=== PATIENT | male | born 1995 | race Caucasian/White ===

== ENCOUNTER 2022-01-01 14:00 | Emergency (ER) | payer OTHER, SELFPAY ==
--- NOTE | 2022-01-01 14:16 | ECG_ITS ---
Test Reason : overdose Blood Pressure : / mmHG Vent. Rate : 100 BPM Atrial Rate : 100 BPM P-R Int : 148 ms QRS Dur : 086 ms QT Int : 350 ms P-R-T Axes : 079 058 059 degrees QTc Int : 451 ms Normal sinus rhythm Normal ECG No previous ECGs available Referred By: Samm Treadwell Electronically Signed By:FELIPE WALLER
[2022-01-01 14:17] VITALS: BP 137/80; BP 140/90; PULSE 125; PULSE 98; RESP 16; O2SAT 98; O2SAT 99; BMI 22.6
[2022-01-01] MEDS: 0.9 % Sodium Chloride 1,000 ML 999 ML IV ×2 (14:32→20:10)
[2022-01-01 14:36] VITALS: PULSE 96; RESP 11; O2SAT 98
[2022-01-01 14:50] LABS: MANUAL DIFF FLAG NO
[2022-01-01 14:53] LABS: Basophils Absolute Auto 0.1 X10*3/uL (0.0-0.2); Basophils Percent Auto 0.6 % (0-2); Eosinophils Percent Auto 0.1 % (0-4); Hematocrit 41.3 % (42.0-52.0); Hemoglobin 13.4 g/dl (14.0-18.0); Imm Gran Abs Auto 0.06 X10*3/uL (0.00-0.03); Imm Gran Pct Auto 0.4 % (0.0-0.4); Lymphocytes Absolute Auto 2.3 X10*3/uL (1.2-4.9); Lymphocytes Percent Auto 14.5 % (20-40); Mean Corpuscular HGB Conc 32.4 g/dl (31.0-36.0); Mean Corpuscular Hemoglobin 26.6 pg (27.0-33.0); Mean Corpuscular Volume 81.9 fL (80.0-98.0); Mean Platelet Volume 10.2 fL (9.4-12.4); Monocytes Absolute Auto 0.6 X10*3/uL (0.1-1.2); Monocytes Percent Auto 3.8 % (2-11); Neutrophils Absolute Auto 12.5 x10*3/uL (2.0-8.3); Neutrophils Percent Auto 80.6 % (45-73); Platelet Count 370 X10*3/uL (160-400); Red Blood Count 5.04 X10*6/uL (4.60-5.80); Red Cell Distribution Width 13.3 % (11.0-16.0); White Blood Count 15.6 X10*3/uL (4.8-10.8)
--- NOTE | 2022-01-01 15:05 | PC.NURSE ---
Dawson from poison control contacted, suggestions at this time: supportive care with fluids, glucagon, atropine - Labs to monitor: CMP, LFT's, Tylenol, asp, and ETOH levels, urine tox screen and cont cardiac monitoring. Monitor 6-8 hours for hypoglycemia, hypotension, and bradycardia. Zofran may be given for n/v. At this time poison control suggests supportive care. MLP notified.
[2022-01-01 15:09] LABS: Acetaminophen LAB < 1 mcg/mL (<30); Alanine Aminotransferase 25 U/L (0-40); Albumin Level 4.8 g/dL (3.5-5.0); Alkaline Phosphatase 77 U/L (39-117); Anion Gap 17 (12-20); Aspartate Amino Transferase 20 U/L (5-37); Bilirubin Direct 0.3 mg/dL (0.0-0.5); Bilirubin Total 0.6 mg/dL (0.0-1.0); Blood Urea Nitrogen 6 mg/dL (9-16); Calcium 9.9 mg/dL (8.4-10.2); Carbon Dioxide 24 mmol/L (22-29); Chloride 106 mmol/L (96-108); Creatinine Clr Calc Pharmacy 113.9; Estimated Glomerular Filt Rate > 60; Ethanol < 10 mg/dL; Glucose Random 153 mg/dL (60-115); Magnesium 2.1 mg/dL (1.6-2.6); Potassium 3.5 mmol/L (3.3-5.1); Salicylate < 5.0 mg/dL (15-30); Sodium 143 mmol/L (135-145); Total Protein 7.8 g/dL (6.5-8.0)
[2022-01-01 15:22] LABS: Lipase < 4 U/L (8-78)
--- NOTE | 2022-01-01 15:28 | MHC.CARE ---
CARE team aware of pt who arrived to ED s/p intentional propanolol overdose. Will continue to follow, assessment is pending medical clearance.
[2022-01-01] MEDS: Metoclopramide HCl 10 MG/2 ML VIAL IVPUSH (15:43)
[2022-01-01 15:47] LABS: Appearance Urine Clear; Color Urine Yellow; Glucose Urine UA 500 mg/dL (Negative); Leukocyte Esterase Urine Negative (Negative); Nitrite Urine Negative (Negative); PH 8.5 (5.0-9.0); Specific Gravity - Urine 1.015 (1.005-1.025); UMIC TRIGGER UACC YES; Urine Blood Trace (Negative); Urine Ketones 15 mg/dL (Negative); Urine Protein Negative (Neg-Trace)
[2022-01-01 15:52] LABS: Amphetamine Screen Urine Not Detected (Not Detect); Barbiturates, Urine Not Detected (Not Detect); Benzodiazepines Screen Urine Not Detected (Not Detect); Cannabinoid Screen Urine POSITIVE (Not Detect); Cocaine Screen Urine Not Detected (Not Detect); Fentanyl, urine Not Detected (Not Detect); Opiate Screen Urine Not Detected (Not Detect); Phencyclidine Screen Urine Not Detected (Not Detect)
[2022-01-01 15:55] LABS: Bacteria Urine None Seen (None Seen); Hyaline Casts Urine 0-2 /LPF (0-2); Squamous Epithelial Cell Urine 0-2 /HPF (0-2); WBC Urine 0-5 /HPF (0-5)
[2022-01-01 17:17] LABS: Glucose, Whole Blood 88 mg/dL (60-115)
[2022-01-01 17:38] VITALS: BP 111/63; PULSE 80; RESP 16; TEMP 36.9; O2SAT 98
--- NOTE | 2022-01-01 18:08 | ED_ITS ---
HPI - Overdose General Chief Complaint: Overdose Stated Complaint: CRISIS,OVERDOSE Time Seen by Provider: 01/01/22 14:15 Source: patient Mode of arrival: ambulatory Limitations: no limitations History of Present Illness HPI Narrative: 27-year-old male presents to ED for taking a 1000 mg of propranolol. Patient states he was anxious and stole meds from his friend. Patient states he was not suicidal. Patient admits to history of depression anxiety in the past. Today's patient birthday. Patient states he took medications 1-2 before coming to the ER. Patient only complaining nausea and monitor. Related Data Allergies Allergy/AdvReac Type Severity Reaction Status Date / Time No Known Allergies Allergy Unverified 12/23/19 17:26 [No Known Allergies*] Review of Systems Review of Systems: overdose. nausea and vomitting Yes all other systems are reviewed and are negative [facility] Social History Social History Patient Tobacco Use Status: Never used Tobacco Substance Use Type: Marijuana Advance Directives: No Advance Directives Information Provided: Yes Physical Exam Vital Signs: Vital Signs: Last Vital Signs Temp 98.4 F 01/01/22 17:38 Pulse 80 01/01/22 17:38 Resp 16 01/01/22 17:38 BP 111/63 01/01/22 17:38 Pulse Ox 98 01/01/22 17:38 O2 Del Method 01/01/22 17:38 BMI result Body Mass Index 22.6 Const: General: cooperative, healthy appearing, comfortable, no acute distress, well developed, alert, awake and Physically active Orientation/con sciousness: patient oriented x3 HEENT: Head: Yes normal to inspection, Yes No palpable skull fracture present, Yes normocephalic, Yes atraumatic and No abrasion Eyes: General: appearance normal, both eyes and all related structures Neck: Neck: Yes normal visual inspection, Yes full ROM, Yes no lymphadenopathy, Yes no meningeal signs, Yes trachea midline, Yes supple, No anterior neck swelling and No tender Chest: Chest palpation & inspection: normal inspection of the chest and normal palpation of entire chest wall Resp: Effort & Inspection: normal respiratory effort and able to speak in complete sentences Auscultation: clear to auscultation bilaterally Cardio: Jugular venous distension: no JVD Heart sounds: S1 normal heart sound present and S2 normal heart sound present GI: Inspection: Yes normal to inspection and No abdominal wall ecchymosis Palpation (GI): Soft to palpation, not firm, nontender, no guarding and not rigid : General: No CVA tenderness and Yes no CVA tenderness Back/Spine/Pelvis: Back: no CVA tenderness, No CVA tenderness and No back tenderness Skin: General skin exam: no rashes or lesions noted and elasticity normal Neuro: General: patient oriented x3, gait normal, tone normal, no meningeal signs and CN's II-XI intact bilaterally Cranial nerves: Yes CN's II-XII intact bilaterally Extrem: General: Yes normal to inspection and Yes full ROM Psych: Appearance: grossly normal, well kempt and not disheveled Course Course Course Narrative: Will do labs and EKG. Gone 3 mg IV ordered. Reevaluation(s) Reevaluation #1: Nurse called poison Control recommended supportive care with fluids and also atropine and glucagon if needed. Recommended looking for hyperglycemia bradycardia and hypertension. Patient receiving fluids. I also recommend glucose checked every hour. Repeat labs are ordered. Poison Control called back around 19:00. Crisis evaluation Pending. Sign out to DIAMOND Rapp Time: 18:11 MDM - Overdose MDM Narrative Medical decision making narrative: Overdoese Lab Data Result diagrams: 01/01/22 14:45 01/01/22 14:45 Labs: Lab Results 01/01/22 01/01/22 01/01/22 Range/Units 14:45 14:45 15:23 WBC 15.6 H (4.8-10.8) X10*3/uL RBC 5.04 (4.60-5.80) X10*6/uL Hgb 13.4 L (14.0-18.0) g/dl Hct 41.3 L (42.0-52.0) % MCV 81.9 (80.0-98.0) fL MCH 26.6 L (27.0-33.0) pg MCHC 32.4 (31.0-36.0) g/dl RDW 13.3 (11.0-16.0) % Plt Count 370 (160-400) X10*3/uL MPV 10.2 (9.4-12.4) fL Immature Gran % (Auto) 0.4 (0.0-0.4) % Neut % (Auto) 80.6 H (45-73) % Lymph % (Auto) 14.5 L (20-40) % [place] % (Auto) 3.8 (2-11) % Eos % (Auto) 0.1 (0-4) % Baso % (Auto) 0.6 (0-2) % Lymph # (Auto) 2.3 (1.2-4.9) X10*3/uL [place] # (Auto) 0.6 (0.1-1.2) X10*3/uL Eos # (Auto) 0.0 (0.0-0.4) X10*3/uL Baso # (Auto) 0.1 (0.0-0.2) X10*3/uL Abs Immat Gran (auto) 0.06 H (0.00-0.03) X10*3/uL Absolute Neuts (auto) 12.5 H (2.0-8.3) x10*3/uL Absolute Nucleated RBC 0.000 (0.0-0.012) X10*3/uL Nucleated RBC % (auto) 0.0 (0.0-0.2) /100WBC Sodium 143 (135-145) mmol/L Potassium 3.5 (3.3-5.1) mmol/L Chloride 106 (96-108) mmol/L Carbon Dioxide 24 (22-29) mmol/L Anion Gap 17 (12-20) BUN 6 L (9-16) mg/dL Creatinine 0.89 (0.5-1.4) mg/dL Estim Creat Clear Calc 113.9 Estimated GFR > 60 POC Glucose (60-115) mg/dL Random Glucose 153 H (60-115) mg/dL Calcium 9.9 (8.4-10.2) mg/dL Magnesium 2.1 (1.6-2.6) mg/dL Total Bilirubin 0.6 (0.0-1.0) mg/dL Direct Bilirubin 0.3 (0.0-0.5) mg/dL AST 20 (5-37) U/L ALT 25 (0-40) U/L Alkaline Phosphatase 77 (39-117) U/L Total Protein 7.8 (6.5-8.0) g/dL Albumin 4.8 (3.5-5.0) g/dL Lipase < 4 L (8-78) U/L Urine Color Yellow Urine Appearance Clear Urine pH 8.5 (5.0-9.0) Ur Specific [place] 1.015 (1.005-1.025) Urine Protein Negative (Neg-Trace) mg/dL Urine Glucose (UA) 500 H (Negative) mg/dL Urine Ketones 15 (Negative) mg/dL Urine Blood Trace H (Negative) Urine Nitrite Negative (Negative) Ur Leukocyte Esterase Negative (Negative) Urine RBC 3-5 H (0-2) /HPF Urine WBC 0-5 (0-5) /HPF Ur Squamous Epith Cells 0-2 (0-2) /HPF Urine Bacteria None Seen (None Seen) Hyaline Casts 0-2 (0-2) /LPF Salicylates < 5.0 L (15-30) mg/dL Urine Opiates Screen (Not Detect) Urine Fentanyl Screen (Not Detect) Acetaminophen < 1 (<30) mcg/mL Ur Barbiturates Screen (Not Detect) Ur Phencyclidine Scrn (Not Detect) Ur Amphetamines Screen (Not Detect) U Benzodiazepines Scrn (Not Detect) Urine Cocaine Screen (Not Detect) U Marijuana (THC) Screen (Not Detect) Ethyl Alcohol < 10 mg/dL 01/01/22 01/01/22 Range/Units 15:23 17:08 WBC (4.8-10.8) X10*3/uL RBC (4.60-5.80) X10*6/uL Hgb (14.0-18.0) g/dl Hct (42.0-52.0) % MCV (80.0-98.0) fL MCH (27.0-33.0) pg MCHC (31.0-36.0) g/dl RDW (11.0-16.0) % Plt Count (160-400) X10*3/uL MPV (9.4-12.4) fL Immature Gran % (Auto) (0.0-0.4) % Neut % (Auto) (45-73) % Lymph % (Auto) (20-40) % [place] % (Auto) (2-11) % Eos % (Auto) (0-4) % Baso % (Auto) (0-2) % Lymph # (Auto) (1.2-4.9) X10*3/uL [place] # (Auto) (0.1-1.2) X10*3/uL Eos # (Auto) (0.0-0.4) X10*3/uL Baso # (Auto) (0.0-0.2) X10*3/uL Abs Immat Gran (auto) (0.00-0.03) X10*3/uL Absolute Neuts (auto) (2.0-8.3) x10*3/uL Absolute Nucleated RBC (0.0-0.012) X10*3/uL Nucleated RBC % (auto) (0.0-0.2) /100WBC Sodium (135-145) mmol/L Potassium (3.3-5.1) mmol/L Chloride (96-108) mmol/L Carbon Dioxide (22-29) mmol/L Anion Gap (12-20) BUN (9-16) mg/dL Creatinine (0.5-1.4) mg/dL Estim Creat Clear Calc Estimated GFR POC Glucose 88 (60-115) mg/dL Random Glucose (60-115) mg/dL Calcium (8.4-10.2) mg/dL Magnesium (1.6-2.6) mg/dL Total Bilirubin (0.0-1.0) mg/dL Direct Bilirubin (0.0-0.5) mg/dL AST (5-37) U/L ALT (0-40) U/L Alkaline Phosphatase (39-117) U/L Total Protein (6.5-8.0) g/dL Albumin (3.5-5.0) g/dL Lipase (8-78) U/L Urine Color Urine Appearance Urine pH (5.0-9.0) Ur Specific [place] (1.005-1.025) Urine Protein (Neg-Trace) mg/dL Urine Glucose (UA) (Negative) mg/dL Urine Ketones (Negative) mg/dL Urine Blood (Negative) Urine Nitrite (Negative) Ur Leukocyte Esterase (Negative) Urine RBC (0-2) /HPF Urine WBC (0-5) /HPF Ur Squamous Epith Cells (0-2) /HPF Urine Bacteria (None Seen) Hyaline Casts (0-2) /LPF Salicylates (15-30) mg/dL Urine Opiates Screen Not Detected (Not Detect) Urine Fentanyl Screen Not Detected (Not Detect) Acetaminophen (<30) mcg/mL Ur Barbiturates Screen Not Detected (Not Detect) Ur Phencyclidine Scrn Not Detected (Not Detect) Ur Amphetamines Screen Not Detected (Not Detect) U Benzodiazepines Scrn Not Detected (Not Detect) Urine Cocaine Screen Not Detected (Not Detect) U Marijuana (THC) Screen POSITIVE H (Not Detect) Ethyl Alcohol mg/dL ECG Data Interpretation: Normal sinus rhythm. Ventricular rate 100. AL interval 143. QRS 86. QTC 451. Negative STEMI Discharge Plan Discharge Clinical Impression: Drug overdose Patient Disposition: Still a Patient Instructions: Adult Overdose (ED)
--- NOTE | 2022-01-01 18:37 | ECG_ITS ---
Test Reason : OVERDOSE Blood Pressure : / mmHG Vent. Rate : 081 BPM Atrial Rate : 081 BPM P-R Int : 148 ms QRS Dur : 082 ms QT Int : 380 ms P-R-T Axes : 088 077 070 degrees QTc Int : 441 ms Normal sinus rhythm Normal ECG When compared with ECG of 01-JAN-2022 14:25, No significant change was found Referred By: Samm Treadwell Electronically Signed By:FELIPE WALLER
[2022-01-01 19:13] LABS: Basophils Absolute Auto 0.1 X10*3/uL (0.0-0.2); Basophils Percent Auto 0.5 % (0-2); Eosinophils Percent Auto 0.1 % (0-4); Hematocrit 40.3 % (42.0-52.0); Imm Gran Abs Auto 0.04 X10*3/uL (0.00-0.03); Imm Gran Pct Auto 0.3 % (0.0-0.4); Lymphocytes Absolute Auto 2.1 X10*3/uL (1.2-4.9); Lymphocytes Percent Auto 14.9 % (20-40); MANUAL DIFF FLAG NO; Mean Corpuscular HGB Conc 32.3 g/dl (31.0-36.0); Mean Corpuscular Hemoglobin 26.3 pg (27.0-33.0); Mean Corpuscular Volume 81.6 fL (80.0-98.0); Mean Platelet Volume 10.2 fL (9.4-12.4); Monocytes Absolute Auto 0.6 X10*3/uL (0.1-1.2); Monocytes Percent Auto 4.1 % (2-11); Neutrophils Absolute Auto 11.3 x10*3/uL (2.0-8.3); Neutrophils Percent Auto 80.1 % (45-73); Platelet Count 312 X10*3/uL (160-400); Red Blood Count 4.94 X10*6/uL (4.60-5.80); Red Cell Distribution Width 13.3 % (11.0-16.0); White Blood Count 14.1 X10*3/uL (4.8-10.8)
[2022-01-01 19:23] LABS: INTERNATIONAL NORM RATIO 1.1 (0.9-1.1); Prothrombin Time 13.2 SEC (10.0-13.1)
[2022-01-01 19:26] LABS: Partial Thromboplastin Time 28.7 SEC (26.0-36.4)
[2022-01-01 19:29] LABS: Acetaminophen LAB < 1 mcg/mL (<30); Alanine Aminotransferase 24 U/L (0-40); Albumin Level 4.5 g/dL (3.5-5.0); Alkaline Phosphatase 70 U/L (39-117); Anion Gap 14 (12-20); Aspartate Amino Transferase 20 U/L (5-37); Bilirubin Total 0.7 mg/dL (0.0-1.0); Blood Urea Nitrogen 6 mg/dL (9-16); Calcium 9.6 mg/dL (8.4-10.2); Carbon Dioxide 24 mmol/L (22-29); Chloride 111 mmol/L (96-108); Creatinine Clr Calc Pharmacy 123.6; Estimated Glomerular Filt Rate > 60; Ethanol < 10 mg/dL; Glucose Random 97 mg/dL (60-115); Salicylate < 5.0 mg/dL (15-30); Sodium 145 mmol/L (135-145); Total Protein 7.5 g/dL (6.5-8.0)
[2022-01-01 20:16] LABS: Glucose, Whole Blood 78 mg/dL (60-115)
--- NOTE | 2022-01-01 20:16 | PC.NURSE ---
Assumed care of pt. at 1900. Pt. resting quietly in bed at this time. Pt. requesting fluids. Provided ice water.
[2022-01-01 20:29] VITALS: BP 130/72; PULSE 91; RESP 16; TEMP 36.7; O2SAT 98
[2022-01-01 21:24] LABS: Glucose, Whole Blood 73 mg/dL (60-115)
== END 2022-01-01 23:02 | disposition home or self-care (01) ==
PROVIDERS: Physician Assistant; Emergency Provider Emergency Medicine
DX: F33.1 Major depressive disorder, recurrent, moderate (principal); T44.7X1A Poisoning by beta-adrenoreceptor antagonists, accidental (unintentional), initial encounter; Y92.9 Unspecified place or not applicable; F41.1 Generalized anxiety disorder; F43.0 Acute stress reaction; Z79.899 Other long term (current) drug therapy
CPT/HCPCS: 36415; 80053; 80143; 80179; 80307; 81001; 82077; 82248; 82947; 83690; 83735; 85025; 85610; 85730; 93005; 96361; 96374; 96375; 99285; J1610; J2765

== ENCOUNTER 2022-04-05 13:04 | Emergency (ER) | payer OTHER, SELFPAY ==
--- NOTE | ~2022-04-05 | CT_ITS ---
EXAMINATION: CT ABDOMEN AND PELVIS WITH CONTRAST CLINICAL INFORMATION: Abdominal pain, black stool and hematuria. History of ulcerative colitis. COMPARISON: 02/14/2018 TECHNIQUE: Multidetector volumetric images were obtained from the superior aspect of the liver through the pubic symphysis following administration 85 mL of Omnipaque 350 intravenous contrast. Sagittal and coronal reformatted images were obtained on the technologist's workstation. Oral contrast: No This CT examination was performed using dose optimization techniques as appropriate, variously including the following: *Automated exposure control *Adjustment of mA and/or kV according to patient size (this includes techniques or standardized protocols for targeted exams where dose is matched to indication/reason for exam; i.e. extremities or head) *Use of iterative reconstruction technique DLP: 424 mGy-cm FINDINGS: LUNG BASES: Normal. No pulmonary consolidation or pleural effusion. LIVER: The liver has normal size, shape, and attenuation. No evidence of liver mass. GALLBLADDER AND BILIARY TREE: Gallbladder is surgically absent. No dilated bile ducts. PANCREAS: Normal. No edema, pancreatic ductal dilatation or mass. SPLEEN: Normal. ADRENAL GLANDS: Normal. KIDNEYS AND URETERS: The kidneys enhance symmetrically and have normal cortical thickness. No suspicious renal lesions. No perinephric edema or fluid collection. No urolithiasis or hydroureteronephrosis. BLADDER: Normal. No calculi or wall thickening. BOWEL AND PERITONEUM: Stomach and small bowel are unremarkable. No dilated loops of bowel. The appendix is normal. No overt bowel wall thickening or mesenteric fat stranding. No acute abnormalities along the gastrointestinal tract. No pericolonic or perirectal edema. No free fluid or pneumoperitoneum. ABDOMINAL WALL: Normal. VASCULATURE: Normal. LYMPH NODES: No pathologic sized lymph nodes in the abdomen or pelvis. No inguinal lymphadenopathy. PELVIC VISCERA: Prostate gland is normal in size. No pelvic mass or pelvic free fluid. MUSCULOSKELETAL: No acute skeletal findings. Chronic L5 spondylolysis with mild grade 1 anterolisthesis of L5 on S1. CT/CT abdomen pelvis w IV con IMPRESSION: * No acute findings. No evidence of urinary tract stones or hydronephrosis. * No evidence of obstruction or inflammation along the gastrointestinal tract.
[2022-04-05 14:08] VITALS: BP 140/92; PULSE 84; RESP 16; TEMP 36.3; O2SAT 100; BMI 25.8
--- NOTE | 2022-04-05 14:09 | ED_ITS ---
HPI - Abdominal Pain General Chief Complaint: Abdominal Pain <Niki Mckenzie CNP - Last Filed: 04/05/22 14:17> Stated Complaint: abd pain <Niki Mckenzie CNP - Last Filed: 04/05/22 14:17> Time Seen by Provider: 04/05/22 15:37 <Niki Mckenzie CNP - Last Filed: 04/05/22 14:17> Source: patient <SHERIDAN Pantoja - Last Filed: 04/05/22 17:48> Mode of arrival: ambulatory <SHERIDAN Pantoja - Last Filed: 04/05/22 17:48> Limitations: no limitations <SHERIDAN Pantoja Last Filed: 04/05/22 17:48> History of Present Illness HPI narrative: 27 yo male with history of Ulcerative Colitis on monthly infusions presents to the ER for evaluation of 4-5 weeks of intermittent bilateral flank pain/lateral abdominal pain. He states he has had constipation and been taking OTC laxatives and fiber suppelments. On 04/02 and 04/04 he had two episodes of mucusy black stools. Today had a green BM. He has GI doctor in [facility] that he has not seen in some time. He states his last colonoscopy was 2 or 3 years ago. He states he was seen at an Urgent Care last week and diagnosed with the Flu. He also had microscopic hematuria at that time and also back in 2018. He states he sometimes has increased urinary urgency and difficulty emptying his bladder. Has never seen Urologist. He reports worsening back pain the last few days he isn't sure if it is muscular from the flu or from his kidneys. <SHERIDAN Pantoja - Last Filed: 04/05/22 17:48> MD elicited complaint: abdominal pain <SHERIDAN Pantoja - Last Filed: 04/05/22 17:48> Pertinent past history: constipation and other (UC) <SHERIDAN Pantjoa Last Filed: 04/05/22 17:48> Onset (ago): week(s) <SHERIDAN Pantoja Last Filed: 04/05/22 17:48> Pain Consistency: intermittent <SHERIDAN Pantoja Last Filed: 04/05/22 17:48> Location: L flank and R flank <SHERIDAN Pantoja - Last Filed: 04/05/22 17:48> Severity: moderate <SHERIDAN Pantoja - Last Filed: 04/05/22 17:48> Quality: aching <SHERIDAN Pantoja - Last Filed: 04/05/22 17:48> Radiation: none <SHERIDAN Pantoja - Last Filed: 04/05/22 17:48> Migration to: no migration <SHERIDAN Pantoja - Last Filed: 04/05/22 17:48> Exacerbating factors: nothing <SHERIDAN Pantoja - Last Filed: 04/05/22 17:48> Relieving factors: nothing <SHERIDAN Pantoja - Last Filed: 04/05/22 17:48> Context: history of similar episodes <SHERIDAN Pantoja - Last Filed: 04/05/22 17:48> Associated symptoms: constipation <SHERIDAN Pantoja - Last Filed: 04/05/22 17:48> Related Data Allergies/Adverse Reactions: Allergies Allergy/AdvReac Type Severity Reaction Status Date / Time No Known Allergies Allergy Unverified 12/23/19 17:26 [No Known Allergies*] <Niki Mckenzie CNP - Last Filed: 04/05/22 14:17> Review of Systems Review of Systems Constitutional: No Fever, No Chills ENT/Mouth: No sore throat, No Rhinorrhea, No Swallowing Difficulty Cardiovascular: No Chest Pain, No SOB, No Orthopnea, No Edema Respiratory: No Cough, No Sputum, No Wheezing, No dyspnea Gastrointestinal: No Nausea, No Vomiting, No Diarrhea, + abdominal Pain, No Hematochezia, + Melena Genitourinary: No Dysuria, No Urinary Frequency, No Hematuria Musculoskeletal: No joint pain, No Myalgias Skin: No Skin Lesions, No rash Neuro: No Weakness, No Numbness, No Dizziness, No Headache Psych: No Anxiety/Panic, No Depression Heme/Lymph: No Bruising, No Lymphadenopathy Endocrine: No Polyuria, No Polydipsia <SHERIDAN Pantoja Last Filed: 04/05/22 17:48> PMFSH Social History Social History: Social History Patient Tobacco Use Status: Never used Tobacco Smoked in Last 30 Days: No Use of substances other than those prescribed or required for medical reasons: No Substance Use Type: Marijuana Advance Directives: No Advance Directives Information Provided: No <Niki MckenzieALBIN - Last Filed: 04/05/22 14:17> Physical Exam ED Vital Signs: Vital Signs - 24 hr 04/05/22 14:08 Temperature 97.3 F Pulse Rate 84 Respiratory Rate 16 Blood Pressure 140/92 H Pulse Oximetry 100 Oxygen Delivery Method Room Air BMI result Body Mass Index 25.8 <Niki MckenzieALBIN - Last Filed: 04/05/22 14:17> Vital Signs - 24 hr 04/05/22 14:08 Temperature 97.3 F Pulse Rate 84 Respiratory Rate 16 Blood Pressure 140/92 H Pulse Oximetry 100 Oxygen Delivery Method Room Air BMI result Body Mass Index 25.8 <SHERIDAN Pantoja - Last Filed: 04/05/22 17:48> Appearance: Alert. Oriented X3. No acute distress. Eyes: Pupils equal, round and reactive to light. ENT: Pharynx normal. Neck: Normal inspection. Neck supple. CVS: Normal heart rate and rhythm. Pulses normal. Respiratory: No respiratory distress. Breath sounds normal. Abdomen: Soft. Mild lateral tenderness without rebound or guarding, normal +BS x4. no CVA tenderness. ANGELY: normal inspection, normal tone, scant amount of mucus green stool Skin: Skin warm and dry. Normal skin color. Normal skin turgor. No rashes. Extremities: No lower extremity edema. Neuro: Oriented X 3. Grossly normal, nonfocal <SHERIDAN Pantoja - Last Filed: 04/05/22 17:48> Course Course Course Narrative: This is an RME: Additional HPI, ROS, PE not included below will be de ferred to primary provider. Patient is a 27-year-old male with reported past medical history of ulcerative colitis, renal calculi who presents to the emergency department complaining of diffuse anterior abdominal pain, distention, black stool x 2 04/02 and 04/04, constipation. Reports that he was evaluated at urgent care 04/02 had urinalysis performed which revealed microscopic hematuria, and advised f/u with GI/primary care, he was also tested for influenza at that time which was positive. Today he presented to his primary care doctor's office and was unable to be seen as he had positive influenza testing. Therefore, he came to ED today. Plan: labs, urinalysis, CT ABD/ pelvis, will need occult stool sample. <Niki Mckenzie CNP - Last Filed: 04/05/22 14:17> This is an RME: Additional HPI, ROS, PE not included below will be deferred to primary provider. Patient is a 27-year-old male with reported past medical history of ulcerative colitis, renal calculi who presents to the emergency department complaining of diffuse anterior abdominal pain, distention, black stool x 2 04/02 and 04/04, constipation. Reports that he was evaluated at urgent care 04/02 had urinalysis performed which revealed microscopic hematuria, and advised f/u with GI/primary care, he was also tested for influenza at that time which was positive. Today he presented to his primary care doctor's office and was unable to be seen as he h ad positive influenza testing. Therefore, he came to ED today. Plan: labs, urinalysis, CT ABD/ pelvis, will need occult stool sample. <SHERIDAN Pantoja - Last Filed: 04/05/22 17:48> Reevaluation(s) Reevaluation #1: Lab workup showing H&H of 15/47. Rectal with scant amount of green stool, no evidence of melena. Doubt acute GI bleeding given his clinical presentation and examination today. His labs are unremarkable. He does still have some microscopic hematuria which has been chronic since 2018. He will need to see a urologist as an outpatient. He does not have any evidence of infection at this time. His CT scan is still pending. <SHERIDAN Pantoja - Last Filed: 04/05/22 17:48> Medical Decision Making Lab Data Result Diagrams: : 04/05/22 14:33 04/05/22 14:33 <Niki Mckenzie CNP - Last Filed: 04/05/22 14:17> Labs: Lab Results 04/05/22 04/05/22 04/05/22 Range/Units 14:33 14:33 14:33 WBC 13.9 H (4.8-10.8) X10*3/uL RBC 5.76 (4.60-5.80) X10*6/uL Hgb 15.0 (14.0-18.0) g/dl Hct 47.0 (42.0-52.0) % MCV 81.6 (80.0-98.0) fL MCH 26.0 L (27.0-33.0) pg MCHC 31.9 (31.0-36.0) g/dl RDW 12.9 (11.0-16.0) % Plt Count 356 (160-400) X10*3/uL MPV 10.5 (9.4-12.4) fL Immature Gran % (Auto) 0.3 (0.0-0.4) % Neut % (Auto) 56.7 (45-73) % Lymph % (Auto) 32.9 (20-40) % [place] % (Auto) 6.8 (2-11) % Eos % (Auto) 2.7 (0-4) % Baso % (Auto) 0.6 (0-2) % Lymph # (Auto) 4.6 (1.2-4.9) X10*3/uL [place] # (Auto) 1.0 (0.1-1.2) X10*3/uL Eos # (Auto) 0.4 (0.0-0.4) X10*3/uL Baso # (Auto) 0.1 (0.0-0.2) X10*3/uL Abs Immat Gran (auto) 0.04 H (0.00-0.03) X10*3/uL Absolute Neuts (auto) 7.9 (2.0-8.3) x10*3/uL Absolute Nucleated RBC 0.000 (0.0-0.012) X10*3/uL Nucleated RBC % (auto) 0.0 (0.0-0.2) /100WBC Sodium 140 (135-145) mmol/L Potassium 4.0 (3.3-5.1) mmol/L Chloride 105 (96-108) mmol/L Carbon Dioxide 27 (22-29) mmol/L Anion Gap 12 (12-20) BUN 12 (9-16) mg/dL Creatinine 0.97 (0.5-1.4) mg/dL Estim Creat Clear Calc 105.0 Estimated GFR > 60 Random Glucose 88 (60-115) mg/dL Calcium 10.2 D (8.4-10.2) mg/dL Total Bilirubin 0.7 (0.0-1.0) mg/dL AST 21 (5-37) U/L ALT 29 (0-40) U/L Alkaline Phosphatase 85 (39-117) U/L Total Protein 8.3 H (6.5-8.0) g/dL Albumin 4.8 (3.5-5.0) g/dL Lipase 10 (8-78) U/L Urine Color Yellow Urine Appearance Clear Urine pH 6.0 (5.0-9.0) Ur Specific [place] 1.025 (1.005-1.025) Urine Protein Trace (Neg-Trace) mg/dL Urine Glucose (UA) Negative (Negative) mg/dL Urine Ketones Trace (Negative) mg/dL Urine Blood Small (1+) H (Negative) Urine Nitrite Negative (Negative) Ur Leukocyte Esterase Negative (Negative) Urine RBC 6-10 H (0-2) /HPF Urine WBC 0-5 (0-5) /HPF Ur Squamous Epith Cells 0-2 (0-2) /HPF Urine Bacteria None Seen (None Seen) Hyaline Casts 0-2 (0-2) /LPF <Niki Mckenzie, ALBIN - Last Filed: 04/05/22 14:17> Lab Results 04/05/22 04/05/22 04/05/22 Range/Units 14:33 14:33 14:33 WBC 13.9 H (4.8-10.8) X10*3/uL RBC 5.76 (4.60-5.80) X10*6/uL Hgb 15.0 (14.0-18.0) g/dl Hct 47.0 (42.0-52.0) % MCV 81.6 (80.0-98.0) fL MCH 26.0 L (27.0-33.0) pg MCHC 31.9 (31.0-36.0) g/dl RDW 12.9 (11.0-16.0) % Plt Count 356 (160-400) X10*3/uL MPV 10.5 (9.4-12.4) fL Immature Gran % (Auto) 0.3 (0.0-0.4) % Neut % (Auto) 56.7 (45-73) % Lymph % (Auto) 32.9 (20-40) % [place] % (Auto) 6.8 (2-11) % Eos % (Auto) 2.7 (0-4) % Baso % (Auto) 0.6 (0-2) % Lymph # (Auto) 4.6 (1.2-4.9) X10*3/uL [place] # (Auto) 1.0 (0.1-1.2) X10*3/uL Eos # (Auto) 0.4 (0.0-0.4) X10*3/uL Baso # (Auto) 0.1 (0.0-0.2) X10*3/uL Abs Immat Gran (auto) 0.04 H (0.00-0.03) X10*3/uL Absolute Neuts (auto) 7.9 (2.0-8.3) x10*3/uL Absolute Nucleated RBC 0.000 (0.0-0.012) X10*3/uL Nucleated RBC % (auto) 0.0 (0.0-0.2) /100WBC Sodium 140 (135-145) mmol/L Potassium 4.0 (3.3-5.1) mmol/L Chloride 105 (96-108) mmol/L Carbon Dioxide 27 (22-29) mmol/L Anion Gap 12 (12-20) BUN 12 (9-16) mg/dL Creatinine 0.97 (0.5-1.4) mg/dL Estim Creat Clear Calc 105.0 Estimated GFR > 60 Random Glucose 88 (60-115) mg/dL Calcium 10.2 D (8.4-10.2) mg/dL Total Bilirubin 0.7 (0.0-1.0) mg/dL AST 21 (5-37) U/L ALT 29 (0-40) U/L Alkaline Phosphatase 85 (39-117) U/L Total Protein 8.3 H (6.5-8.0) g/dL Albumin 4.8 (3.5-5.0) g/dL Lipase 10 (8-78) U/L Urine Color Yellow Urine Appearance Clear Urine pH 6.0 (5.0-9.0) Ur Specific [place] 1.025 (1.005-1.025) Urine Protein Trace (Neg-Trace) mg/dL Urine Glucose (UA) Negative (Negative) mg/dL Urine Ketones Trace (Negative) mg/dL Urine Blood Small (1+) H (Negative) Urine Nitrite Negative (Negative) Ur Leukocyte Esterase Negative (Negative) Urine RBC 6-10 H (0-2) /HPF Urine WBC 0-5 (0-5) /HPF Ur Squamous Epith Cells 0-2 (0-2) /HPF Urine Bacteria None Seen (None Seen) Hyaline Casts 0-2 (0-2) /LPF <SHERIDAN Pantoja - Last Filed: 04/05/22 17:48> Medications Administered Discontinued Medications Generic Name Dose Route Start Last Admin Trade Name Freq PRN Reason Stop Dose Admin Iohexol 100 ml 04/05/22 16:37 04/05/22 16:37 Iohexol 350 Mg/Ml 100 Ml Infus..Btl IV 04/05/22 16:38 85 ml ONCE ONE Administration <Niki Mckenzie CNP - Last Filed: 04/05/22 14:17> Medications Administered Discontinued Medications Generic Name Dose Route Start Last Admin Trade Name Freq PRN Reason Stop Dose Admin Iohexol 100 ml 04/05/22 16:37 04/05/22 16:37 Iohexol 350 Mg/Ml 100 Ml Infus..Btl IV 04/05/22 16:38 85 ml ONCE ONE Administration <SHERIDAN Pantoja - Last Filed: 04/05/22 17:48> Critical Care Time Critical Care Time Critical Care Time: No <SHERIDAN Pantoja - Last Filed: 04/05/22 17:48> Discharge Plan Discharge Clinical Impression: Abdominal pain, Microscopic hematuria, Constipation <Niki Mckenzie CNP - Last Filed: 04/05/22 14:17> Patient Disposition: Home, Self-Care <Niki Mckenzie CNP - Last Filed: 04/05/22 14:17> Instructions: Constipation (ED), Ulcerative Colitis (ED), Hematuria (ED) <Niki Mckenzie CNP - Last Filed: 04/05/22 14:17> Additional Instructions: Your lab workup today was unremarkable. Your urine test showed trace amounts of blood, this has been present since 2018. Recommend following up with Urology for further evaluation. Name and number below. Call for an appointment. Recommend increasing your [id number] bowel regimen. Add Colace, senna, M iraLax as needed to produce normal bowel movements. Recommend following up with your GI doctor. If you would like a 2nd opinion feel free to contact our GI office here to be seen. <Niki Mckenzie CNP - Last Filed: 04/05/22 14:17> [place] [facility] [place] [facility] [place] [facility] [place] [facility] [place] Group] <Niki Mckenzie CNP - Last Filed: 04/05/22 14:17>
[2022-04-05 14:37] LABS: MANUAL DIFF FLAG NO
[2022-04-05 14:39] LABS: Appearance Urine Clear; Color Urine Yellow; Glucose Urine UA Negative (Negative); Leukocyte Esterase Urine Negative (Negative); Nitrite Urine Negative (Negative); Specific Gravity - Urine 1.025 (1.005-1.025); UMIC TRIGGER UACC YES; Urine Blood Small (1+) (Negative); Urine Ketones Trace mg/dL (Negative); Urine Protein Trace mg/dL (Neg-Trace)
[2022-04-05 14:42] LABS: Bacteria Urine None Seen (None Seen); Hyaline Casts Urine 0-2 /LPF (0-2); Squamous Epithelial Cell Urine 0-2 /HPF (0-2); WBC Urine 0-5 /HPF (0-5)
[2022-04-05 14:53] LABS: Alanine Aminotransferase 29 U/L (0-40); Albumin Level 4.8 g/dL (3.5-5.0); Alkaline Phosphatase 85 U/L (39-117); Anion Gap 12 (12-20); Aspartate Amino Transferase 21 U/L (5-37); Bilirubin Total 0.7 mg/dL (0.0-1.0); Blood Urea Nitrogen 12 mg/dL (9-16); Calcium 10.2 mg/dL (8.4-10.2); Carbon Dioxide 27 mmol/L (22-29); Chloride 105 mmol/L (96-108); Estimated Glomerular Filt Rate > 60; Glucose Random 88 mg/dL (60-115); Lipase 10 U/L (8-78); Sodium 140 mmol/L (135-145); Total Protein 8.3 g/dL (6.5-8.0)
[2022-04-05 15:08] LABS: Basophils Absolute Auto 0.1 X10*3/uL (0.0-0.2); Basophils Percent Auto 0.6 % (0-2); Eosinophils Absolute Auto 0.4 X10*3/uL (0.0-0.4); Eosinophils Percent Auto 2.7 % (0-4); Imm Gran Abs Auto 0.04 X10*3/uL (0.00-0.03); Imm Gran Pct Auto 0.3 % (0.0-0.4); Lymphocytes Absolute Auto 4.6 X10*3/uL (1.2-4.9); Lymphocytes Percent Auto 32.9 % (20-40); Mean Corpuscular HGB Conc 31.9 g/dl (31.0-36.0); Mean Corpuscular Volume 81.6 fL (80.0-98.0); Mean Platelet Volume 10.5 fL (9.4-12.4); Monocytes Percent Auto 6.8 % (2-11); Neutrophils Absolute Auto 7.9 x10*3/uL (2.0-8.3); Neutrophils Percent Auto 56.7 % (45-73); Platelet Count 356 X10*3/uL (160-400); Red Blood Count 5.76 X10*6/uL (4.60-5.80); Red Cell Distribution Width 12.9 % (11.0-16.0); White Blood Count 13.9 X10*3/uL (4.8-10.8)
[2022-04-05] MEDS: iohexoL 350 MG/ML 100 ML INFUS..BTL IV (16:37)
== END 2022-04-05 18:04 | disposition home or self-care (01) ==
PROVIDERS: Nurse Practitioner Family; Emergency Provider Student in an Organized Health Care Education/Training Program
DX: R10.13 Epigastric pain (principal); R31.9 Hematuria, unspecified; K59.00 Constipation, unspecified; Z79.899 Other long term (current) drug therapy
CPT/HCPCS: 36415; 74177; 80053; 81001; 83690; 85025; 99284; Q9967

== ENCOUNTER 2023-09-06 04:25 | Observation (INO) | payer OTHER, SELFPAY ==
--- NOTE | ~2023-09-06 | CT_ITS ---
EXAMINATION: CT ABDOMEN AND PELVIS WITH CONTRAST CLINICAL INFORMATION: Rectal pain. Rule out perirectal abscess. COMPARISON: Previous CT of the abdomen and pelvis March 2022 TECHNIQUE: Multidetector volumetric images were obtained from the superior aspect of the liver through the pubic symphysis following administration 85 mL of Omnipaque 350 intravenous contrast. Sagittal and coronal reformatted images were obtained on the technologist's workstation. Oral contrast: Yes This CT examination was performed using dose optimization techniques as appropriate, variously including the following: *Automated exposure control *Adjustment of mA and/or kV according to patient size (this includes techniques or standardized protocols for targeted exams where dose is matched to indication/reason for exam; i.e. extremities or head) *Use of iterative reconstruction technique DLP: 530 mGy-cm FINDINGS: LUNG BASES: The visualized lung bases are unremarkable. LIVER, GALLBLADDER, AND BILIARY TREE: The liver is normal in size, shape, and attenuation. No focal hepatic lesion or biliary ductal dilatation is present. The gallbladder has been removed. PANCREAS: Unremarkable. SPLEEN: Unremarkable. ADRENAL GLANDS: Unremarkable. KIDNEYS AND URETERS: The kidneys are normal in size, shape, and attenuation. No hydronephrosis, hydroureter, or calculi seen. No perinephric stranding. BLADDER: Unremarkable. GASTROINTESTINAL TRACT: There is central low attenuation with higher attenuation slightly thick wall seen in the left side of the anus or lower rectum in the 2:00 axis suggestive of a small abscess for example axial image 93 series 3. There is mild wall thickening and edema of the sigmoid colon suggestive of mild colitis. Small and large bowel are otherwise unremarkable. The appendix is not seen. ABDOMINAL WALL: No significant hernia is appreciated. LYMPH NODES: Normal. VASCULAR: Unremarkable. PELVIC VISCERA: Unremarkable. OSSEOUS STRUCTURES: Bilateral L5 pars. Mild anterior subluxation of L5 with respect to S1. CT/CT abdomen pelvis w IV con IMPRESSION: 1.5 cm low left perirectal or perianal abscess in the 2:00 axis measuring 1.5 cm. Mild colitis of the sigmoid colon. Fleischner guidelines were followed.
[2023-09-06 04:28] VITALS: BP 127/82; PULSE 90; RESP 16; TEMP 36.7; O2SAT 99
[2023-09-06 04:38] VITALS: BMI 28.2
--- NOTE | 2023-09-06 05:34 | ED.GENADULT ---
HPI - General Adult General Chief complaint: General Medical Stated complaint: pain in the rectum area Time Seen by Provider: 09/06/23 04:56 History of Present Illness HPI narrative: Patient is a 28-year-old male with a history of ulcerative colitis. Presented today with having pain in the perirectal area. Patient denies any fever chills. No abdominal surgery done in the past. Positive history of being on biologic for the ulcerative colitis. No fever no chills. No trauma to the area. Pain seems to be worse with sitting down. 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 No chest pain or diaphoresis no coughing or congestion or respiratory symptoms. Patient from home Related Data Allergies Allergy/AdvReac Type Severity Reaction Status Date / Time No Known Allergies Allergy Verified 09/06/23 04:43 [No Known Allergies*] Review of Systems Review of Systems: Positive rectal pain Yes all other systems are reviewed and are negative [facility] Social History Social History Patient Tobacco Use Status: Never used Tobacco Smoked in Last 30 Days: No Substance Use Type: Marijuana Advance Directives: No Advance Directives Information Provided: Yes Do you have a plan to hurt others: No Plan Physical Exam ED Vital Signs: Vital Signs - 24 hr 09/06/23 04:28 09/06/23 06:36 Temperature 98.1 F 98.0 F Pulse Rate 90 94 Respiratory Rate 16 14 Blood Pressure 127/82 139/89 Pulse Oximetry 99 99 Oxygen Delivery Method Room Air Room Air BMI result Body Mass Index 28.2 Appearance: Alert. Oriented X3. No acute distress. Eyes: Pupils equal, round and reactive to light. ENT: Pharynx normal. Neck: Normal inspection. Neck supple. No lymph nodes noted. No crepitus CVS: Normal heart rate and rhythm. Pulses normal. Normal S1 and S2 Respiratory: No respiratory distress. Breath sounds normal. No Wheezing. No rales Abdomen: Soft and nontender. No rigidity. No distention. good BS x4 Rectal exam done with nursing present. There is no external hemorrhoids noted. There is no gross fissure noted. There has no gross abscess palpable. Prostate is normal. No constipation noted Skin: Skin warm and dry. Normal skin color. Normal skin turgor. Extremities: No lower extremity edema. Neurovascular intact to all extremities. No Lacerations. No Rash Neuro: Oriented X 3. No motor deficit. No sensory deficit. Moving all extermities. No slurred speech Medications Administered Discontinued Medications Generic Name Dose Route Start Last Admin Trade Name Arleen PRN Reason Stop Dose Admin Hydromorphone HCl 0.5 mg 09/06/23 05:32 09/06/23 05:46 Hydromorphone Hcl 0.5 Mg/0.5 Ml Syringe IVPUSH 09/06/23 05:33 0.5 mg ONCE ONE Administration Protocol Sodium Chloride 1,000 mls @ 999 mls/hr 09/06/23 05:45 09/06/23 06:39 Ns IV 09/06/23 06:45 Infused .Q1H1M NIDIA Infusion Iohexol 85 ml 09/06/23 06:34 09/06/23 06:34 Iohexol 350 Mg/Ml 100 Ml Infus..Btl IV 09/06/23 06:35 85 ml ONCE ONE Administration Medical Decision Making Medical Decision Making [facility] Narrative: Patient is 28 years old presents today with rectal pain. On my exam I did not appreciate any external hemorrhoids. There is no gross abscess that was appreciated. There has no foreign bodies. Patient has a history of ulcerative colitis. Is on a biologic. Complaining of rectal pain. A CT scan of the abdomen done to rule out the possibility of abscesses. The results is currently pending. Differential Diagnosis Differential Diagnoses: The differential diagnosis associated with the presentation includes Hemorrhoid, abscess, fissure, foreign body Lab Data [facility] Lab Attestation statement: I reviewed the patient's lab results. 09/06/23 05:44 09/06/23 05:44 Labs: Lab Results 09/06/23 Range/Units 05:44 WBC 14.7 H (4.8-10.8) X10*3/uL RBC 5.38 (4.60-5.80) X10*6/uL Hgb 14.3 (14.0-18.0) g/dl Hct 44.3 (42.0-52.0) % MCV 82.3 (80.0-98.0) fL MCH 26.6 L (27.0-33.0) pg MCHC 32.3 (31.0-36.0) g/dl RDW 12.6 (11.0-16.0) % Plt Count 368 (160-400) X10*3/uL MPV 9.8 (9.4-12.4) fL Immature Gran % (Auto) 0.3 (0.0-0.4) % Neut % (Auto) 60.4 (45-73) % Lymph % (Auto) 26.7 (20-40) % [place] % (Auto) 7.6 (2-11) % Eos % (Auto) 4.3 H (0-4) % Baso % (Auto) 0.7 (0-2) % Lymph # (Auto) 3.9 (1.2-4.9) X10*3/uL [place] # (Auto) 1.1 (0.1-1.2) X10*3/uL Eos # (Auto) 0.6 H (0.0-0.4) X10*3/uL Baso # (Auto) 0.1 (0.0-0.2) X10*3/uL Abs Immat Gran (auto) 0.04 H (0.00-0.03) X10*3/uL Absolute Neuts (auto) 8.9 H (2.0-8.3) x10*3/uL Absolute Nucleated RBC 0.000 (0.0-0.012) X10*3/uL Nucleated RBC % (auto) 0.0 (0.0-0.2) /100WBC Sodium 142 (135-145) mmol/L Potassium 3.3 (3.3-5.1) mmol/L Chloride 107 (96-108) mmol/L Carbon Dioxide 25 (22-29) mmol/L Anion Gap 13 (12-20) BUN 9 (9-16) mg/dL Creatinine 0.82 (0.5-1.4) mg/dL Estim Creat Clear Calc 135.1 Estimated GFR > 60 Random Glucose 81 (60-115) mg/dL Lactic Acid 0.7 (0.5-2.0) mmol/L Calcium 9.9 (8.4-10.2) mg/dL Total Bilirubin 0.3 (0.0-1.0) mg/dL Direct Bilirubin 0.1 (0.0-0.5) mg/dL AST 16 (5-37) U/L ALT 22 (0-40) U/L Alkaline Phosphatase 82 (39-117) U/L Total Protein 7.9 (6.5-8.0) g/dL Albumin 4.4 (3.5-5.0) g/dL Lipase 14 (8-78) U/L Discharge Plan Discharge Clinical Impression: Pain in rectum Patient Disposition: Still a Patient Print Language: Nepali
[2023-09-06] MEDS: 0.9 % Sodium Chloride 1,000 ML 999 ML IV (05:46)
[2023-09-06] MEDS: HYDROmorphone HCl 0.5 MG/0.5 ML SYRINGE IVPUSH (05:46)
[2023-09-06 05:49] LABS: Basophils Absolute Auto 0.1 X10*3/uL (0.0-0.2); Basophils Percent Auto 0.7 % (0-2); Eosinophils Absolute Auto 0.6 X10*3/uL (0.0-0.4); Eosinophils Percent Auto 4.3 % (0-4); Hematocrit 44.3 % (42.0-52.0); Hemoglobin 14.3 g/dl (14.0-18.0); Imm Gran Abs Auto 0.04 X10*3/uL (0.00-0.03); Imm Gran Pct Auto 0.3 % (0.0-0.4); Lymphocytes Absolute Auto 3.9 X10*3/uL (1.2-4.9); Lymphocytes Percent Auto 26.7 % (20-40); MANUAL DIFF FLAG NO; Mean Corpuscular HGB Conc 32.3 g/dl (31.0-36.0); Mean Corpuscular Hemoglobin 26.6 pg (27.0-33.0); Mean Corpuscular Volume 82.3 fL (80.0-98.0); Mean Platelet Volume 9.8 fL (9.4-12.4); Monocytes Absolute Auto 1.1 X10*3/uL (0.1-1.2); Monocytes Percent Auto 7.6 % (2-11); Neutrophils Absolute Auto 8.9 x10*3/uL (2.0-8.3); Neutrophils Percent Auto 60.4 % (45-73); Platelet Count 368 X10*3/uL (160-400); Red Blood Count 5.38 X10*6/uL (4.60-5.80); Red Cell Distribution Width 12.6 % (11.0-16.0); White Blood Count 14.7 X10*3/uL (4.8-10.8)
[2023-09-06 06:04] LABS: Lactic Acid 0.7 mmol/L (0.5-2.0)
[2023-09-06 06:09] LABS: Alanine Aminotransferase 22 U/L (0-40); Albumin Level 4.4 g/dL (3.5-5.0); Alkaline Phosphatase 82 U/L (39-117); Anion Gap 13 (12-20); Aspartate Amino Transferase 16 U/L (5-37); Bilirubin Direct 0.1 mg/dL (0.0-0.5); Bilirubin Total 0.3 mg/dL (0.0-1.0); Blood Urea Nitrogen 9 mg/dL (9-16); Calcium 9.9 mg/dL (8.4-10.2); Carbon Dioxide 25 mmol/L (22-29); Chloride 107 mmol/L (96-108); Creatinine Clr Calc Pharmacy 135.1; Estimated Glomerular Filt Rate > 60; Glucose Random 81 mg/dL (60-115); Lipase 14 U/L (8-78); Potassium 3.3 mmol/L (3.3-5.1); Sodium 142 mmol/L (135-145); Total Protein 7.9 g/dL (6.5-8.0)
[2023-09-06] MEDS: iohexoL 350 MG/ML 100 ML INFUS..BTL 85 ML IV (06:34)
[2023-09-06 06:36] VITALS: BP 139/89; PULSE 94; RESP 14; TEMP 36.7; O2SAT 99
[2023-09-06 08:16] VITALS: BP 130/77; PULSE 92; RESP 16; O2SAT 97
[2023-09-06] MEDS: Piperacillin Sodium/Tazobactam 3.375 GM in 0.9 % Sodium Chloride 50 ML IV ×3 (08:56→18:27)
--- NOTE | 2023-09-06 13:13 | PC.NURSE ---
Spoke with Dr. Mccracken who states that the patient will remain here for IV antibiotic administration and can be placed on a 'regular diet'. Original plan was to go to surgery, but that has now been cancelled at this time.
--- NOTE | 2023-09-06 13:15 | PC.NURSE ---
Spoke with cafeteria to obtain a lunch tray, regular diet for the patient. Awaiting food tray for patient to eat.
[2023-09-06 14:11] VITALS: BP 118/73; PULSE 80; RESP 16; O2SAT 98
--- NOTE | 2023-09-06 14:11 | PHA.MEDREC ---
Pharmacy Consult ? Medication Reconciliation Pharmacy has completed the medication reconciliation. Spoke to patient and confirmed medication list. Patient said he takes bupropion and duloxetine at night and propranolol tid prn. He buys omeprazole 20 mg otc and takes qd prn. He also gets entyvio injection every month, last dose was this past friday09/03/23.
[2023-09-06] MEDS: Ketorolac Tromethamine 15 MG/ML VIAL IVPUSH ×2 (14:25→20:02)
[2023-09-06 15:59] VITALS: BP 122/59; PULSE 77; RESP 18; TEMP 36.6; O2SAT 97
[2023-09-06] MEDS: oxyCODONE HCl Immed Release 5 MG TABLET PO ×2 (16:15→23:37)
[2023-09-06] MEDS: 0.9 % Sodium Chloride Flush 3 ML SYRINGE IVFLUSH ×2 (16:17→20:03)
[2023-09-06 19:29] VITALS: BP 128/72; PULSE 93; RESP 16; TEMP 36.5; O2SAT 97
--- NOTE | 2023-09-06 19:31 | PM.HPGS ---
History of Present Illness History of Present Illness Date of Service: 09/07/23 Chief complaint: Rectal pain Narrative: Luis Alberto Vernon is a 28 year old male with a history or UC since 12 years old followed at [facility] by GI. Gets regular near yearly cscopes and generally diseas under control. Last few days feeling some pain rectal and worsening last night - came to ER - feeling trouble to have a bowel movement. no fever no drainage. CT here showing some mild colitis maybe some 1.5 cm internal abscess - wbc elevated Review of Systems Review of Systems: Yes all other systems are reviewed and are negative [facility] Social History Social History Household Members: Significant Other and Children Household Members Other:: 4 Housing: House Patient Tobacco Use Status: Never used Tobacco Smoked in Last 30 Days: No Use of substances other than those prescribed or required for medical reasons: No Substance Use Type: Marijuana Currently Displaying Signs/Symptoms of Drug Intoxication Withdrawal: No Do you feel safe in your current relationship?: Yes Advance Directives: No Advance Directives Information Provided: Yes Do you have a plan to hurt others: No Plan Recently lost weight without trying: Yes Poor oral hygiene: No service: No Meds Allergies Allergy/AdvReac Type Severity Reaction Status Date / Time No Known Allergies Allergy Verified 09/06/23 04:43 [No Known Allergies*] Active Medications: Current Medications Docusate Sodium (Docusate Sodium 100 Mg Capsule) 100 mg PO BID [facility] Piperacillin Sod/Tazobactam (Sod 3.375 gm/ Sodium Chloride) 50 mls @ 100 mls/hr IV Q6H [facility] Last Infusion: 09/06/23 19:00 Dose: Infused Ketorolac Tromethamine (Ketorolac Tromethamine 15 Mg/Ml Vial) 15 mg IVPUSH Q6H [facility] Last Admin: 09/06/23 14:25 Dose: Not Given Oxycodone HCl (Oxycodone Hcl Immed Release 5 Mg Tablet) 5 mg PO Q4H PRN PRN Reason: Pain, Moderate(Pain Scale 4-6) Last Admin: 09/06/23 16:15 Dose: 5 mg Sodium Chloride (0.9 % Sodium Chloride Flush 3 Ml Syringe) 3 ml IVFLUSH QSHIFT [facility] Last Admin: 09/06/23 16:17 Dose: 3 ml Home Medications ?Medication ?Instructions ?Recorded ?Confirmed ?Last Taken ?Type bupropion HCl 300 mg 24 hr tablet, 300 mg PO BEDTIME 09/06/23 09/06/23 09/05/23 History extended release duloxetine 60 mg capsule,delayed 60 mg PO BEDTIME 09/06/23 09/06/23 09/05/23 History release omeprazole 20 mg capsule,delayed 20 mg PO DAILY PRN Acid Reflux 09/06/23 09/06/23 Unknown History release propranolol 20 mg tablet 20 mg PO TID PRN anxiety 09/06/23 09/06/23 09/05/23 History vedolizumab 300 mg intravenous 300 mg IV QMONTH 09/06/23 09/06/23 09/03/23 History solution (Entyvio) Physical Exam Vital Signs: Vital Signs: Last Vital Signs Temp 97.7 F 09/06/23 19:29 Pulse 93 09/06/23 19:29 Resp 16 09/06/23 19:29 BP 128/72 09/06/23 19:29 Pulse Ox 97 09/06/23 19:29 O2 Del Method Room Air 09/06/23 19:29 BMI result Body Mass Index 28.2 Const: General: cooperative Resp: Effort & Inspection: normal respiratory effort Cardio: Rate: regular rate Rhythm: regular rhythm GI: Other: abdo soft nontender rectal - external anal area normal nontender 0 internal area to left more tender on rectal but true mass not noted no drainage Results Results Labs: Short CBC 09/06/23 Range/Units 05:44 WBC 14.7 H (4.8-10.8) X10*3/uL Hgb 14.3 (14.0-18.0) g/dl Hct 44.3 (42.0-52.0) % Plt Count 368 (160-400) X10*3/uL BMP 09/06/23 05:44 Sodium 142 Potassium 3.3 Chloride 107 Carbon Dioxide 25 BUN 9 Creatinine 0.82 Calcium 9.9 Liver Function 09/06/23 Range/Units 05:44 Total Bilirubin 0.3 (0.0-1.0) mg/dL Direct Bilirubin 0.1 (0.0-0.5) mg/dL AST 16 (5-37) U/L ALT 22 (0-40) U/L Alkaline Phosphatase 82 (39-117) U/L Albumin 4.4 (3.5-5.0) g/dL Abdomen CT scan report/results: report reviewed and image reviewed CT scan - pelvis: report reviewed and image reviewed Additional studies: Chart - [facility] ? Diagnostics Subcategory All Activity ??:?? All Time ??:?? All Subcategories Filter Laboratory Imaging Microbiology Pathology Blood Bank Tests Cardiovascular Other Specialty DATE TYPE STATUS REF RANGE/AUTHOR Hx Today 06:36 Abdomen/Pelvis CT Signed RaffaeleNgoziWinsome 04/05/22 16:39 Abdomen/Pelvis CT Signed Maynor Aguero Luis Alberto Petty Acute 28, M?1995 MRN#? [id number] ADM RAYMUNDO,?[id number]? 5ft 6in 174lb 12.943oz BSA: 1.92m? BMI: 28.2kg/m? Acc#? [id number] Full Code Historical Visits Allergies No Known Allergies (No Known Allergies*) Problems ? ONSET Ulcerative colitis Marilou-rectal abscess Pain in rectum Vital Signs Today 19:29 BP 128/72? Pulse 93? Resp 16? Temp 97.7 F? O2 Sat 97? Delivery Room Air? Home Meds Confirmed Prescription Monitoring Program MEDICATIONS (INSTRUCTIONS) LAST TAKEN Active bupropion HCl 300 mgPOBEDTIME 09/05/23 duloxetine 60 mgPOBEDTIME 09/05/23 omeprazole 20 mgPODAILYPRNAcid Reflux Unknown propranolol 20 mgPOTIDPRNanxiety 09/05/23 vedolizumab [Entyvio] 300 mgIVQMONTH 09/03/23 My Widget No Data to Display Diagnostics Reports Luis Alberto Petty?(c)??28??M??1995 ? Allergy/Adv: No Known Allergies (More??) Close Abdomen/Pelvis CT (Signed) Ngozi Castorenaan - 09/06/23 Abdomen/Pelvis CT (Signed) Maynor Aguero - 04/05/22 Launch?Image [address] [address] [address] Scan Report Signed Patient: Luis Alberto Petty MR#: [id number] : 1995 Acct:[id number] Age/Sex: 28 / M ADM Date: 09/06/23 Loc: HO.ED Attending Dr: Ordering Physician: Daisy Nelson MD Date of Service: 09/06/23 Procedure(s): CT abdomen pelvis w IV con Accession Number(s): [id number] cc: Daisy Nelson MD; Physician,Unknown ~ EXAMINATION: CT ABDOMEN AND PELVIS WITH CONTRAST CLINICAL INFORMATION: Rectal pain. Rule out perirectal abscess. COMPARISON: Previous CT of the abdomen and pelvis March 2022 TECHNIQUE: Multidetector volumetric images were obtained from the superior aspect of the liver through the pubic symphysis following administration 85 mL of Omnipaque 350 intravenous contrast. Sagittal and coronal reformatted images were obtained on the technologist's workstation. Oral contrast: Yes This CT examination was performed using dose optimization techniques as appropriate, variously including the following: *Automated exposure control *Adjustment of mA and/or kV according to patient size (this includes techniques or standardized protocols for targeted exams where dose is matched to indication/reason for exam; i.e. extremities or head) *Use of iterative reconstruction technique DLP: 530 mGy-cm FINDINGS: LUNG BASES: The visualized lung bases are unremarkable. LIVER, GALLBLADDER, AND BILIARY TREE: The liver is normal in size, shape, and attenuation. No focal hepatic lesion or biliary ductal dilatation is present. The gallbladder has been removed. PANCREAS: Unremarkable. SPLEEN: Unremarkable. ADRENAL GLANDS: Unremarkable. KIDNEYS AND URETERS: The kidneys are normal in size, shape, and attenuation. No hydronephrosis, hydroureter, or calculi seen. No perinephric stranding. BLADDER: Unremarkable. GASTROINTESTINAL TRACT: There is central low attenuation with higher attenuation slightly thick wall seen in the left side of the anus or lower rectum in the 2:00 axis suggestive of a small abscess for example axial image 93 series 3. There is mild wall thickening and edema of the sigmoid colon suggestive of mild colitis. Small and large bowel are otherwise unremarkable. The appendix is not seen. ABDOMINAL WALL: No significant hernia is appreciated. LYMPH NODES: Normal. VASCULAR: Unremarkable. PELVIC VISCERA: Unremarkable. OSSEOUS STRUCTURES: Bilateral L5 pars. Mild anterior subluxation of L5 with respect to S1. CT/CT abdomen pelvis w IV con IMPRESSION: 1.5 cm low left perirectal or perianal abscess in the 2:00 axis measuring 1.5 cm. Mild colitis of the sigmoid colon. Fleischner guidelines were followed. Dictated By: Winsome Castorena MD Signed By: <Electronically signed by Winsome Castorena MD in OV> 09/06/2315 DD/ TD/TT: Animal Physiologist: SHANE Assessment and Plan (1) Marilou-rectal abscess: Status: Acute (2) Ulcerative colitis: Status: Acute Plan 28 year old male with UC and maybe small perirectal abscess - not well noted on CT and on phyical exam - will try iv antibx and reassess tomorrow - if not improving consider exam under anesthesia in the OR - small so hope it improves with iv antibx he agrees for now Quality Stroke Does the patient have a stroke diagnosis?: No VTE Prior VTE?: No VTE Risk Level:: Surgical - low VTE Device Contraindication: Treatment Not Indicated VTE Drug Contraindication: Treatment Not Indicated Procedures Date of Service Date of Service: 09/07/23
[2023-09-06] MEDS: DULoxetine HCl 60 MG CAPSULE.DR PO (20:01)
[2023-09-06] MEDS: buPROPion HCl XL 300 MG TAB.ER.24H PO (20:02)
[2023-09-06] MEDS: Docusate Sodium 100 MG CAPSULE PO (20:02)
[2023-09-07] MEDS: Piperacillin Sodium/Tazobactam 3.375 GM in 0.9 % Sodium Chloride 50 ML IV ×4 (00:51→18:20)
[2023-09-07] MEDS: Ketorolac Tromethamine 15 MG/ML VIAL IVPUSH ×4 (02:12→19:38)
[2023-09-07 03:13] VITALS: BP 138/70; PULSE 87; RESP 16; TEMP 36.4; O2SAT 97
[2023-09-07 06:43] LABS: MANUAL DIFF FLAG NO
[2023-09-07 07:17] LABS: Basophils Absolute Auto 0.1 X10*3/uL (0.0-0.2); Basophils Percent Auto 0.5 % (0-2); Eosinophils Absolute Auto 0.7 X10*3/uL (0.0-0.4); Eosinophils Percent Auto 4.8 % (0-4); Hematocrit 43.8 % (42.0-52.0); Hemoglobin 14.1 g/dl (14.0-18.0); Imm Gran Abs Auto 0.05 X10*3/uL (0.00-0.03); Imm Gran Pct Auto 0.4 % (0.0-0.4); Lymphocytes Absolute Auto 3.1 X10*3/uL (1.2-4.9); Lymphocytes Percent Auto 23.1 % (20-40); Mean Corpuscular HGB Conc 32.2 g/dl (31.0-36.0); Mean Corpuscular Hemoglobin 26.7 pg (27.0-33.0); Mean Corpuscular Volume 82.8 fL (80.0-98.0); Mean Platelet Volume 10.3 fL (9.4-12.4); Monocytes Absolute Auto 1.2 X10*3/uL (0.1-1.2); Monocytes Percent Auto 8.7 % (2-11); Neutrophils Absolute Auto 8.4 x10*3/uL (2.0-8.3); Neutrophils Percent Auto 62.5 % (45-73); Platelet Count 323 X10*3/uL (160-400); Red Blood Count 5.29 X10*6/uL (4.60-5.80); Red Cell Distribution Width 12.7 % (11.0-16.0); White Blood Count 13.5 X10*3/uL (4.8-10.8)
[2023-09-07 07:40] VITALS: BP 111/58; PULSE 94; RESP 16; TEMP 36.3; O2SAT 95
[2023-09-07] MEDS: 0.9 % Sodium Chloride Flush 3 ML SYRINGE IVFLUSH ×2 (08:25→19:39)
[2023-09-07] MEDS: Docusate Sodium 100 MG CAPSULE PO ×2 (08:25→20:34)
--- NOTE | 2023-09-07 13:49 | PM.PNGS ---
Subjective Subjective Date of Service: 09/07/23 Interval history: Patient says he is feeling much better he is able to sit without as much discomfort he denies any fever or chills he is passing gas easily. Still has not had a bowel movement Physical Exam Vital Signs: Vital Signs: Last Vital Signs Temp 97.4 F 09/07/23 07:40 Pulse 94 09/07/23 07:40 Resp 16 09/07/23 07:40 BP 111/58 L 09/07/23 07:40 Pulse Ox 95 09/07/23 07:40 O2 Del Method Room Air 09/07/23 07:40 BMI result Body Mass Index 28.2 Const: General: cooperative, healthy appearing, comfortable and no acute distress GI: Other: Abdomen is benign Rectal exam does not reveal any palpable masses or lesions and is much less uncomfortable today than it was yesterday. Objective Data Active Medications Bupropion HCl (Bupropion Hcl Xl 300 Mg Tab.Er.24h) 300 mg PO BEDTIME [facility] Last Admin: 09/06/23 20:02 Dose: 300 mg Documented By: DORCAS Docusate Sodium (Docusate Sodium 100 Mg Capsule) 100 mg PO BID [facility] Last Admin: 09/07/23 08:25 Dose: 100 mg Documented By: JIMBO Duloxetine HCl (Duloxetine Hcl 60 Mg Capsule.) 60 mg PO BEDTIME [facility] Last Admin: 09/06/23 20:01 Dose: 60 mg Documented By: DORCAS Piperacillin Sod/Tazobactam (Sod 3.375 gm/ Sodium Chloride) 50 mls @ 100 mls/hr IV Q6H [facility] Last Infusion: 09/07/23 13:04 Dose: Infused Documented By: JIMBO Ketorolac Tromethamine (Ketorolac Tromethamine 15 Mg/Ml Vial) 15 mg IVPUSH Q6H [facility] Last Admin: 09/07/23 08:25 Dose: 15 mg Documented By: JIMBO Omeprazole (Omeprazole 20 Mg Capsule.) 20 mg PO DAILY PRN PRN Reason: Acid Reflux Oxycodone HCl (Oxycodone Hcl Immed Release 5 Mg Tablet) 5 mg PO Q4H PRN PRN Reason: Pain, Moderate(Pain Scale 4-6) Last Admin: 09/06/23 23:37 Dose: 5 mg Documented By: DORCAS Propranolol HCl (Propranolol Hcl 20 Mg Tablet) 20 mg PO TID PRN; Protocol PRN Reason: anxiety Sodium Chloride (0.9 % Sodium Chloride Flush 3 Ml Syringe) 3 ml IVFLUSH QSHIFT [facility] Last Admin: 09/07/23 08:25 Dose: 3 ml Documented By: JIMBO Labs 09/07/23 05:47 09/06/23 05:44 Labs: Laboratory Results - last 24 hr 09/07/23 05:47 MCV 82.8 MCH 26.7 L MCHC 32.2 RDW 12.7 Plt Count 323 MPV 10.3 Immature Gran % (Auto) 0.4 Neut % (Auto) 62.5 Lymph % (Auto) 23.1 [place] % (Auto) 8.7 Eos % (Auto) 4.8 H Baso % (Auto) 0.5 Lymph # (Auto) 3.1 [place] # (Auto) 1.2 Eos # (Auto) 0.7 H Baso # (Auto) 0.1 Abs Immat Gran (auto) 0.05 H Absolute Neuts (auto) 8.4 H Absolute Nucleated RBC 0.000 Nucleated RBC % (auto) 0.0 Microbiology Microbiology Results: Microbiology 09/06/23 08:45 Blood Culture - Preliminary Blood - Venous No growth after 24 hours. 09/06/23 08:45 Blood Culture - Preliminary Blood - Venous No growth after 24 hours. Procedures Date of Service Date of Service: 09/07/23 Progress Note: A&P Assessment and plan (1) Marilou-rectal abscess: Status: Acute Assessment and Plan: 28-year-old male with ulcerative colitis history coming in with rectal pain much improved yesterday compared to today although his white count is still little elevated at 13,000 thousand. After discussing his disease and reviewing the CT scan I do not think he has a very significant abscess and with the improvement I do not think an exam under anesthesia will be able to really find an area with a large abscess. I feel like he is doing better with IV antibiotics so we will continue repeat white count tomorrow hopefully encourage him to have another bowel movement by the end of the day and then re-evaluate. Most likely he should be okay to go home with p.o. antibiotics and follow up with his bookkeeper receptionist at [facility]. He understands and agrees with the above plan and is not eager to have an operation (2) Ulcerative colitis: Status: Acute Time Spent With Patient Time: Total time managing care of this patient today ____ minutes. Quality Stroke Does the patient have a stroke diagnosis?: No VTE Prior VTE?: No VTE Risk Level:: Surgical - low VTE Device Contraindication: Treatment Not Indicated VTE Drug Contraindication: Treatment Not Indicated
[2023-09-07] MEDS: Omeprazole 20 MG CAPSULE.DR PO (14:31)
--- NOTE | 2023-09-07 15:13 | MHC.CM.PN ---
PT REPORTS HE LIVES WITH HIS GIRLFRIEND AND IS INDEPENDENT WITH CARE HE HAS NO DME AND NO SERVICES PT SAYS HE HAS A HCP NAMING HIS FATHER HIS AGENT, COPY REQUESTED PT DOES NOT KNOW THE NAME OF HIS PCP, BUT SAYS HE GOES TO [facility] ADULT MEDICINE OBSERVATION NOTICE DELIVERED DCP: HOME VIA PRIVATE TRANSPORT
[2023-09-07 15:15] VITALS: BP 130/66; PULSE 100; RESP 18; TEMP 36.2; O2SAT 95
[2023-09-07 19:08] VITALS: BP 141/88; PULSE 93; RESP 18; TEMP 36.1; O2SAT 96
[2023-09-07] MEDS: oxyCODONE HCl Immed Release 5 MG TABLET PO (19:39)
[2023-09-07] MEDS: DULoxetine HCl 60 MG CAPSULE.DR PO (20:34)
[2023-09-07] MEDS: buPROPion HCl XL 300 MG TAB.ER.24H PO (20:34)
[2023-09-08] MEDS: Piperacillin Sodium/Tazobactam 3.375 GM in 0.9 % Sodium Chloride 50 ML IV ×2 (01:16→06:12)
[2023-09-08] MEDS: Ketorolac Tromethamine 15 MG/ML VIAL IVPUSH ×2 (01:50→08:17)
[2023-09-08 03:15] VITALS: BP 135/71; PULSE 100; RESP 16; TEMP 36.6; O2SAT 95
[2023-09-08] MEDS: Omeprazole 20 MG CAPSULE.DR PO (06:12)
[2023-09-08 06:29] LABS: MANUAL DIFF FLAG NO
[2023-09-08 06:50] LABS: Basophils Absolute Auto 0.1 X10*3/uL (0.0-0.2); Basophils Percent Auto 0.7 % (0-2); Eosinophils Absolute Auto 0.5 X10*3/uL (0.0-0.4); Eosinophils Percent Auto 5.6 % (0-4); Hematocrit 40.7 % (42.0-52.0); Hemoglobin 13.3 g/dl (14.0-18.0); Imm Gran Abs Auto 0.03 X10*3/uL (0.00-0.03); Imm Gran Pct Auto 0.3 % (0.0-0.4); Lymphocytes Absolute Auto 2.5 X10*3/uL (1.2-4.9); Mean Corpuscular HGB Conc 32.7 g/dl (31.0-36.0); Mean Corpuscular Hemoglobin 27.2 pg (27.0-33.0); Mean Corpuscular Volume 83.2 fL (80.0-98.0); Mean Platelet Volume 10.3 fL (9.4-12.4); Monocytes Percent Auto 10.6 % (2-11); Neutrophils Absolute Auto 5.3 x10*3/uL (2.0-8.3); Neutrophils Percent Auto 56.8 % (45-73); Platelet Count 283 X10*3/uL (160-400); Red Blood Count 4.89 X10*6/uL (4.60-5.80); Red Cell Distribution Width 12.6 % (11.0-16.0); White Blood Count 9.4 X10*3/uL (4.8-10.8)
[2023-09-08 06:52] VITALS: BP 125/70; PULSE 101; RESP 16; TEMP 36.6; O2SAT 97
--- NOTE | 2023-09-08 08:00 | PM.PNGS ---
Subjective Subjective Date of Service: 09/10/23 Interval history: Says he feels much better Able to have a good bowel movement this morning Denies significant pain Physical Exam Vital Signs: Vital Signs: Last Vital Signs Temp 98 F 09/08/23 06:52 Pulse 101 H 09/08/23 06:52 Resp 16 09/08/23 06:52 BP 125/70 09/08/23 06:52 Pulse Ox 97 09/08/23 06:52 O2 Del Method Room Air 09/08/23 06:52 BMI result Body Mass Index 28.2 Const: General: comfortable and no acute distress Resp: Effort & Inspection: normal respiratory effort Cardio: Rate: regular rate GI: Other: Rectal exam does not reveal any induration, no tenderness in the perianal area, no redness or cellulitis, no fluctuance Palpation (GI): Soft to palpation, not firm, nontender and no guarding Objective Data Active Medications Bupropion HCl (Bupropion Hcl Xl 300 Mg Tab.Er.24h) 300 mg PO BEDTIME [facility] Last Admin: 09/07/23 20:34 Dose: 300 mg Documented By: VASU Docusate Sodium (Docusate Sodium 100 Mg Capsule) 100 mg PO BID [facility] Last Admin: 09/07/23 20:34 Dose: 100 mg Documented By: VASU Duloxetine HCl (Duloxetine Hcl 60 Mg Capsule.) 60 mg PO BEDTIME [facility] Last Admin: 09/07/23 20:34 Dose: 60 mg Documented By: VASU Piperacillin Sod/Tazobactam (Sod 3.375 gm/ Sodium Chloride) 50 mls @ 100 mls/hr IV Q6H [facility] Last Infusion: 09/08/23 06:47 Dose: Infused Documented By: VASU Ketorolac Tromethamine (Ketorolac Tromethamine 15 Mg/Ml Vial) 15 mg IVPUSH Q6H [facility] Last Admin: 09/08/23 01:50 Dose: 15 mg Documented By: VASU Omeprazole (Omeprazole 20 Mg Capsule.) 20 mg PO BID@0630,1630 [facility] Last Admin: 09/08/23 06:12 Dose: 20 mg Documented By: VASU Oxycodone HCl (Oxycodone Hcl Immed Release 5 Mg Tablet) 5 mg PO Q4H PRN PRN Reason: Pain, Moderate(Pain Scale 4-6) Last Admin: 09/07/23 19:39 Dose: 5 mg Documented By: VASU Propranolol HCl (Propranolol Hcl 20 Mg Tablet) 20 mg PO TID PRN; Protocol PRN Reason: anxiety Sodium Chloride (0.9 % Sodium Chloride Flush 3 Ml Syringe) 3 ml IVFLUSH QSHIFT [facility] Last Admin: 09/07/23 19:39 Dose: 3 ml Documented By: VASU Labs 09/08/23 05:45 09/06/23 05:44 Labs: Laboratory Results - last 24 hr 09/08/23 05:45 MCV 83.2 MCH 27.2 MCHC 32.7 RDW 12.6 Plt Count 283 MPV 10.3 Immature Gran % (Auto) 0.3 Neut % (Auto) 56.8 Lymph % (Auto) 26.0 [place] % (Auto) 10.6 Eos % (Auto) 5.6 H Baso % (Auto) 0.7 Lymph # (Auto) 2.5 [place] # (Auto) 1.0 Eos # (Auto) 0.5 H Baso # (Auto) 0.1 Abs Immat Gran (auto) 0.03 Absolute Neuts (auto) 5.3 Absolute Nucleated RBC 0.000 Nucleated RBC % (auto) 0.0 Microbiology Microbiology Results: Microbiology 09/06/23 08:45 Blood Culture - Preliminary Blood - Venous No growth after 24 hours. 09/06/23 08:45 Blood Culture - Preliminary Blood - Venous No growth after 24 hours. 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 Quality Stroke Does the patient have a stroke diagnosis?: No VTE Prior VTE?: No VTE Risk Level:: Surgical - low VTE Device Contraindication: Treatment Not Indicated VTE Drug Contraindication: Treatment Not Indicated
[2023-09-08] MEDS: Docusate Sodium 100 MG CAPSULE PO (08:17)
[2023-09-08] MEDS: 0.9 % Sodium Chloride Flush 3 ML SYRINGE IVFLUSH (08:17)
--- NOTE | 2023-09-08 08:42 | MHC.CM.PN ---
EMR REVIEWED. PATIENT MEDICALLY CLEARED FOR DC HOME SELF CARE. HAS A RIDE ON THE WAY. RN AWARE.
--- NOTE | 2023-09-08 09:41 | PM.DS ---
DS: Providers Provider Date of Service: 09/08/23 Date of admission: 09/06/23 12:48 Date of discharge: 09/08/23 Primary care physician: Efrain Talbot MD Attending physician on admission: Liana Mccracken Attending physician on discharge: Alvarez Cervantes DS: Diagnosis Discharge Diagnosis (1) Marilou-rectal abscess: Status: Acute DS: Summary Hospital Course Hospital Course: HPI AT ADMISSION: Luis Alberto Vernon is a 28 year old male with a history or UC since 12 years old followed at [facility] by GI. Gets regular near yearly cscopes and generally diseas under control. Last few days feeling some pain rectal and worsening last night - came to ER - feeling trouble to have a bowel movement. no fever no drainage. CT here showing some mild colitis maybe some 1.5 cm internal abscess - wbc elevated HOSPITAL COURSE: He was admitted to the surgical service for further treatment of the perirectal abscess. Given small size and it was not well noted on CT and on physical exam, IV antibiotics were attempted with reassessment and if not improving, consider exam under anesthesia in the OR, possible I&D. He improved with nonoperative measures. He had resolution of his pain and his WBC count normalized. He remained inpatient for 2 days for IV abx. On the day of discharge, he was tolerating a solid diet without nausea/vomiting, had no rectal pain and had normal bowel movements. He had no induration, fluctuance, cellulitis or tenderness on rectal exam. He felt ready for discharge. He was discharged to home on a course of PO Augmentin. 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 Status at Discharge Functional status at discharge: independent ambulation Overall status at discharge: patient is progressing back to baseline Time Attestation Discharge Coordination Time (in mins): 30 Quality: Safe Use of Opioids Does Pt have an Active Cancer Diagnosis on the Problem List?: No Quality: Stroke Does the patient have a stroke diagnosis?: No Physical Exam Vital Signs: Vital Signs: Last Vital Signs Temp 98 F 09/08/23 06:52 Pulse 101 H 09/08/23 06:52 Resp 16 09/08/23 06:52 BP 125/70 09/08/23 06:52 Pulse Ox 97 09/08/23 06:52 O2 Del Method Room Air 09/08/23 06:52 BMI result Body Mass Index 28.2 Const: General: comfortable and no acute distress GI: Other: no rectal tenderness, fluctuance Discharge Plan Discharge Patient Disposition: Home, Self-Care Referrals: Physician,Unknown J [Physician] - 1 Week Discharge Medications: New amoxicillin-pot clavulanate 875-125 mg tablet 1 tab PO BID Qty: 13 0RF Continued omeprazole 20 mg Capsule,Delayed Release(Dr/Ec) 20 mg PO DAILY PRN (Reason: Acid Reflux) propranolol 20 mg tablet 20 mg PO TID PRN (Reason: anxiety) bupropion HCl 300 mg tablet extended release 24 hr 300 mg PO BEDTIME duloxetine 60 mg capsule,delayed release(DR/EC) 60 mg PO BEDTIME Entyvio 300 mg Recon Soln 300 mg IV QMONTH Discharge Orders: Discharge Order (Routine); Ordered 09/08/23 Ordered By: Alvarez Cervantes Diet: Advance to usual diet Activity on Discharge: As tolerated Stand Alone Forms: Patient Portal Discharge page Print Language: Swedish Care Plan Goals: Returned to baseline Health Concerns: Had perirectal abscess Ulcerative colitis Plan of Treatment: Oral antibiotics, follow-up with Gastroenterology Assessment: Doing well Discharge Date/Time: 09/08/23 10:00
== END 2023-09-08 10:00 | disposition home or self-care (01) ==
LOC: HO.ED 13:12 → HO.EDOVER 13:38 → HO.S3 15:09
PROVIDERS: Admitting Provider Surgery; Emergency Provider Emergency Medicine Emergency Medical Services; PCP Internal Medicine; Visit Provider Surgery
DX: K61.1 Rectal abscess (principal); K62.89 Other specified diseases of anus and rectum; K51.90 Ulcerative colitis, unspecified, without complications; D72.829 Elevated white blood cell count, unspecified
CPT/HCPCS: 36415; 74177; 80048; 80076; 83605; 83690; 85025; 87040; 96361; 96365; 96366; 96375; 96376; 99221; 99285; J1170; J1885; J2543; Q9967

== ENCOUNTER → 2023-09-06 12:48 | Outpatient (BNV) | payer OTHER, SELFPAY | PROVIDERS: Admitting Provider Surgery; Emergency Provider Emergency Medicine Emergency Medical Services; Visit Provider Surgery | DX: K61.1 Rectal abscess (principal) | CPT/HCPCS: 99222; 99232; 99238 ==

== ENCOUNTER 2023-09-21 20:35 | Emergency (ER) | payer OTHER, SELFPAY ==
--- NOTE | ~2023-09-21 | CT_ITS ---
EXAMINATION: CT ABDOMEN AND PELVIS WITH CONTRAST CLINICAL INFORMATION: RLQ pain COMPARISON: CT abdomen/pelvis 09/06/2023 TECHNIQUE: Multidetector volumetric images were obtained from the superior aspect of the liver through the pubic symphysis following administration 85 mL of Omnipaque 350 intravenous contrast. Sagittal and coronal reformatted images were obtained on the technologist's workstation. Oral contrast: No This CT examination was performed using dose optimization techniques as appropriate, variously including the following: *Automated exposure control *Adjustment of mA and/or kV according to patient size (this includes techniques or standardized protocols for targeted exams where dose is matched to indication/reason for exam; i.e. extremities or head) *Use of iterative reconstruction technique DLP: 651 mGy-cm FINDINGS: LUNG BASES: The visualized lung bases are unremarkable. LIVER, GALLBLADDER, AND BILIARY TREE: The liver is normal in size, shape, and attenuation. No focal hepatic lesion or biliary ductal dilatation is present. Status post cholecystomy. PANCREAS: Unremarkable. SPLEEN: Unremarkable. ADRENAL GLANDS: Unremarkable. KIDNEYS AND URETERS: The kidneys are normal in size, shape, and attenuation. No hydronephrosis, hydroureter, or calculi seen. No perinephric stranding. BLADDER: The bladder is decompressed and not well assessed. No bladder calculi. GASTROINTESTINAL TRACT: Previously seen 1.5 cm left perirectal/perianal abscess is not redemonstrated. The small and large bowel are nondilated. Normal appendix. No pneumoperitoneum or free fluid. ABDOMINAL WALL: No significant hernia is appreciated. LYMPH NODES: Prominent left upper quadrant lymph nodes, with largest measuring up to 1.3 cm in short axis (coronal image 29). There is associated adjacent bunny mesentery in the left upper quadrant. VASCULAR: Unremarkable. PELVIC VISCERA: Normal CT appearance of the prostate and seminal vesicles. OSSEOUS STRUCTURES: No acute or suspicious osseous abnormality. Bilateral L5 pars defects. CT/CT abdomen pelvis w IV con IMPRESSION: 1. Normal appendix. 2. Prominent left upper quadrant lymph nodes with associated bunny mesentery, suggestive of mesenteric adenitis. 3. Previously seen 1.5 cm left perirectal/perianal abscess is not redemonstrated. Fleischner guidelines were followed.
[2023-09-21 20:36] VITALS: BP 112/75; PULSE 146; RESP 16; TEMP 36; O2SAT 95; BMI 27.4
--- NOTE | 2023-09-21 20:37 | ED.GENADULT ---
HPI - General Adult General Chief complaint: Nausea/Vomiting/Diarrhea Stated complaint: vomiting/diarhhea started around 3AM Time Seen by Provider: 09/21/23 21:59 Source: patient, RN notes reviewed and old records reviewed Mode of arrival: ambulatory Limitations: no limitations History of Present Illness ED Provider: Ella PETERSEN narrative: 28-year-old male with past medical history significant for Crohn's presents for evaluation abdominal pain, vomiting, diarrhea. Patient reports his symptoms started around 3:00 a.m. today. Denies any black or bloody stools which she usually has his with Crohn's flares. The patient was on Augmentin for a perirectal abscess in completed a course last week He reports having had C diff in the past. He denies any fevers, chills His pain is 8/10 and he reports feeling weak No other complaints or concerns at this time Related Data Home Medications ?Medication ?Instructions ?Recorded ?Confirmed bupropion HCl 300 mg 24 hr tablet, 300 mg PO BEDTIME 09/06/23 09/06/23 extended release duloxetine 60 mg capsule,delayed 60 mg PO BEDTIME 09/06/23 09/06/23 release omeprazole 20 mg capsule,delayed 20 mg PO DAILY PRN Acid Reflux 09/06/23 09/06/23 release propranolol 20 mg tablet 20 mg PO TID PRN anxiety 09/06/23 09/06/23 vedolizumab 300 mg intravenous 300 mg IV QMONTH 09/06/23 09/06/23 solution (Entyvio) Previous Rx's ?Medication ?Instructions ?Recorded amoxicillin 875 mg-potassium 1 tab PO BID #13 tabs 09/08/23 clavulanate 125 mg tablet ondansetron 4 mg disintegrating 4 mg PO Q8H PRN nausea and 09/22/23 tablet vomiting #20 tabs Allergies Allergy/AdvReac Type Severity Reaction Status Date / Time No Known Allergies Allergy Verified 09/21/23 20:39 [No Known Allergies*] Review of Systems Constitutional: Constitutional: Denies body ache(s), Denies chills, Denies fever(s), Reports malaise and Reports weakness Eyes: Eyes: Denies blurry vision ENT: Denies sore throat Cardiovascular: Cardiovascular: Denies chest pain and Denies dyspnea Respiratory: Respiratory: Denies cough and Denies dyspnea Gastrointestinal: Gastrointestinal: Reports abdominal pain, Denies hematochezia, Reports diarrhea, Reports nausea and Reports vomiting Musculoskeletal: Musculoskeletal: Denies back pain Integumentary/Breasts: Skin/Breast: Denies rash Neurologic: Reports weakness PMFSH Social History Social History Household Members: Significant Other and Children Household Members Other:: 4 Housing: House Patient Tobacco Use Status: Never used Tobacco Substance Use Type: Marijuana Advance Directives: No Advance Directives Information Provided: No Do you have a plan to hurt others: No Plan service: No Physical Exam ED Vital Signs: Vital Signs - 24 hr 09/21/23 20:36 09/21/23 21:41 09/21/23 22:56 Temperature 96.8 F 98.7 F Pulse Rate 146 H 139 H 123 H Respiratory Rate 16 18 13 Blood Pressure 112/75 117/79 Pulse Oximetry 95 98 94 Oxygen Delivery Method Room Air Room Air Room Air BMI result Body Mass Index 27.4 Const General: healthy appearing, comfortable, no acute distress, alert and awake Nutritional Appearance: well nourished Orientation/consciousness: patient oriented x3 HENMT Head: Yes normocephalic and Yes atraumatic Eyes Eyelids: Yes eyelids normal Conjunctivae: conjunctivae normal Sclerae: sclerae normal Corneas: corneas normal Pupils: Equal, round and reactive pupils present EOM: EOMs intact bilaterally Neck Neck: Yes full ROM Resp Effort & Inspection: normal respiratory effort, able to speak in complete sentences and not labored Cardio Rate: regular rate Rhythm: regular rhythm GI Inspection: No distended Palpation (GI): Soft to palpation, not firm, Tenderness to palpation present (GI) in the RLQ; not in the LLQ, not in the LUQ and not in the RUQ, Guarding due to palpation present (GI) in the RLQ and not rigid Auscultation: normoactive bowel sounds Skin General skin exam: elasticity normal Neuro General: patient oriented x3 Cranial nerves: Yes Equal, round and reactive pupils present and Yes Bilaterally intact EOM present Cognition (Neuro): normal cognition Extrem Other: Moving all extremities well without any obvious deformities Course Course Course Narrative: This is a Rapid Medical Examination (RME) performed by Lissette Delatorre PA-C in triage. Full HPI, ROS, assessment and treatment plan per primary provider in the Main ED. 28 yo male hx of ulcerative colitis here for eval of abdominal pain, vomiting, diarrhea since 0300 this morning. reports multiple episodes of loose stools and vomiting throughout the day. admits stool has yellow coloration to it. reports eating snack foods prior to onset of symptoms. recently completed abx for manohar-rectal abscess. hx of cdiff infection however is unsure if his stool looks similar. reports poor po intake. patient tachy to 140s in triage. denies chest pain but reports chest discomfort. Plan: labs, gi panel, cdiff, ekg ordered Reevaluation(s) Reevaluation #1: Patient's CT scan without acute appendicitis. Plan to treat with IV fluids and discharged with Zofran. The patient is already tolerating p.o. Time: 00:03 Medications Administered Discontinued Medications Generic Name Dose Route Start Last Admin Trade Name Freq PRN Reason Stop Dose Admin Sodium Chloride 1,000 mls @ 999 mls/hr 09/21/23 22:15 09/21/23 22:24 Ns IV 09/21/23 23:15 999 mls/hr .Q1H1M NIDIA Administration Iohexol 85 ml 09/21/23 22:44 09/21/23 22:44 Iohexol 350 Mg/Ml 100 Ml Infus..Btl IV 09/21/23 22:45 85 ml ONCE ONE Administration Morphine Sulfate 4 mg 09/21/23 22:14 09/21/23 22:24 Morphine Sulfate 4 Mg/Ml Cartridge IVPUSH 09/21/23 22:15 4 mg ONCE ONE Administration Protocol Ondansetron HCl 4 mg 09/21/23 22:14 09/21/23 22:24 Ondansetron Hcl 4 Mg/2 Ml Vial IVPUSH 09/21/23 22:15 4 mg ONCE ONE Administration Medical Decision Making Medical Decision Making MDM Narrative: 28-year-old male past medical history as documented above presents for evaluation of abdominal pain. He does have a history of Crohn's. He is quite tachycardic to 135, this is sinus rhythm and EKG. We will hydrate with IV fluids as he is likely dehydrated given the vomiting and diarrhea with poor p.o. intake. Given his white count [id number] and right lower quadrant tenderness with a CT scan to evaluate for acute appendicitis versus ulcerative colitis flare. However, the patient's ESR within normal limits, but CRP is elevated. Differential Diagnosis Differential Diagnoses: The differential diagnosis associated with the presentation includes Gastroenteritis Acute appendicitis Ulcerative colitis C diff Lab Data MDM Lab Attestation statement: I reviewed the patient's lab results. Leukocytosis to 21.3k with a left shift. The patient's red blood cells elevated, hemoglobin hematocrit are upper limits of normal. May be related to hypovolemia. Chloride is elevated to 109, CO2 is low at 18. This may related to tachypnea due to discomfort. Renal function within normal limits. LFTs are significant for an ALT that is just barely above normal at 46, but otherwise reassuring. Lipase is normal 09/21/23 20:47 09/21/23 20:47 Labs: Lab Results 09/21/23 09/21/23 Range/Units 20:47 22:00 WBC 21.3 H (4.8-10.8) X10*3/uL RBC 5.97 H D (4.60-5.80) X10*6/uL Hgb 16.0 D (14.0-18.0) g/dl Hct 47.5 (42.0-52.0) % MCV 79.6 L (80.0-98.0) fL MCH 26.8 L (27.0-33.0) pg MCHC 33.7 (31.0-36.0) g/dl RDW 12.9 (11.0-16.0) % Plt Count 454 H D (160-400) X10*3/uL MPV 9.4 (9.4-12.4) fL Immature Gran % (Auto) 0.4 (0.0-0.4) % Neut % (Auto) 87.9 H (45-73) % Lymph % (Auto) 6.3 L (20-40) % [place] % (Auto) 5.0 (2-11) % Eos % (Auto) 0.1 (0-4) % Baso % (Auto) 0.3 (0-2) % Lymph # (Auto) 1.4 (1.2-4.9) X10*3/uL [place] # (Auto) 1.1 (0.1-1.2) X10*3/uL Eos # (Auto) 0.0 (0.0-0.4) X10*3/uL Baso # (Auto) 0.1 (0.0-0.2) X10*3/uL Abs Immat Gran (auto) 0.09 H (0.00-0.03) X10*3/uL Absolute Neuts (auto) 18.7 H (2.0-8.3) x10*3/uL Absolute Nucleated RBC 0.000 (0.0-0.012) X10*3/uL Nucleated RBC % (auto) 0.0 (0.0-0.2) /100WBC ESR 2 (0-15) MM/HR Sodium 142 (135-145) mmol/L Potassium 3.4 (3.3-5.1) mmol/L Chloride 109 H (96-108) mmol/L Carbon Dioxide 18 L (22-29) mmol/L Anion Gap 18 (12-20) BUN 15 (9-16) mg/dL Creatinine 1.17 (0.5-1.4) mg/dL Estim Creat Clear Calc 93.5 Estimated GFR > 60 Random Glucose 135 H (60-115) mg/dL Calcium 9.7 (8.4-10.2) mg/dL Magnesium 1.7 (1.6-2.6) mg/dL Total Bilirubin 0.8 (0.0-1.0) mg/dL AST 24 (5-37) U/L ALT 46 H (0-40) U/L Alkaline Phosphatase 93 (39-117) U/L C-Reactive Protein 7.10 H (< or = 0.50) mg/dL Total Protein 8.9 H (6.5-8.0) g/dL Albumin 4.8 (3.5-5.0) g/dL Lipase 8 (8-78) U/L C. difficile Tox B Gene NEGATIVE (Negative) Influenza Type A (PCR) NEGATIVE (Negative) Influenza Type B (PCR) NEGATIVE (Negative) RSV RNA Qual (PCR) NEGATIVE (Negative) SARS-CoV-2 RNA (RT-PCR) NEGATIVE (Negative) Discharge Plan Discharge Clinical Impression: Acute mesenteric adenitis Patient Disposition: Home, Self-Care Instructions: Mesenteric Adenitis (ED) Additional Instructions: Your workup in the ER today was reassuring. Drink lots of fluids, small sips at a time. Take Zofran as needed for nausea/vomiting. Return for new or worsening symptoms Prescriptions: New ondansetron 4 mg tablet,disintegrating 4 mg PO Q8H PRN (Reason: nausea and vomiting) Qty: 20 0RF No Action omeprazole 20 mg Capsule,Delayed Release(Dr/Ec) 20 mg PO DAILY PRN (Reason: Acid Reflux) propranolol 20 mg tablet 20 mg PO TID PRN (Reason: anxiety) bupropion HCl 300 mg tablet extended release 24 hr 300 mg PO BEDTIME duloxetine 60 mg capsule,delayed release(DR/EC) 60 mg PO BEDTIME Entyvio 300 mg Recon Soln 300 mg IV QMONTH amoxicillin-pot clavulanate 875-125 mg tablet 1 tab PO BID Qty: 13 0RF Print Language: Burundian
--- NOTE | 2023-09-21 20:39 | ECG_ITS ---
Test Reason : TACHYCARDIA Blood Pressure : / mmHG Vent. Rate : 147 BPM Atrial Rate : 147 BPM P-R Int : 132 ms QRS Dur : 074 ms QT Int : 356 ms P-R-T Axes : 073 -16 066 degrees QTc Int : 557 ms Sinus tachycardia Otherwise normal ECG When compared with ECG of 01-JAN-2022 19:27, Vent. rate has increased BY 66 BPM Non-specific change in ST segment in Anterior leads Referred By: Natty Delatorre Electronically Signed By:LATOSHA MCGEE MD
[2023-09-21 20:54] LABS: MANUAL DIFF FLAG NO
[2023-09-21 20:55] LABS: Basophils Absolute Auto 0.1 X10*3/uL (0.0-0.2); Basophils Percent Auto 0.3 % (0-2); Eosinophils Percent Auto 0.1 % (0-4); Hematocrit 47.5 % (42.0-52.0); Imm Gran Abs Auto 0.09 X10*3/uL (0.00-0.03); Imm Gran Pct Auto 0.4 % (0.0-0.4); Lymphocytes Absolute Auto 1.4 X10*3/uL (1.2-4.9); Lymphocytes Percent Auto 6.3 % (20-40); Mean Corpuscular HGB Conc 33.7 g/dl (31.0-36.0); Mean Corpuscular Hemoglobin 26.8 pg (27.0-33.0); Mean Corpuscular Volume 79.6 fL (80.0-98.0); Mean Platelet Volume 9.4 fL (9.4-12.4); Monocytes Absolute Auto 1.1 X10*3/uL (0.1-1.2); Neutrophils Absolute Auto 18.7 x10*3/uL (2.0-8.3); Neutrophils Percent Auto 87.9 % (45-73); Platelet Count 454 X10*3/uL (160-400); Red Blood Count 5.97 X10*6/uL (4.60-5.80); Red Cell Distribution Width 12.9 % (11.0-16.0); White Blood Count 21.3 X10*3/uL (4.8-10.8)
[2023-09-21 21:18] LABS: Alanine Aminotransferase 46 U/L (0-40); Albumin Level 4.8 g/dL (3.5-5.0); Alkaline Phosphatase 93 U/L (39-117); Anion Gap 18 (12-20); Aspartate Amino Transferase 24 U/L (5-37); Bilirubin Total 0.8 mg/dL (0.0-1.0); Blood Urea Nitrogen 15 mg/dL (9-16); Calcium 9.7 mg/dL (8.4-10.2); Carbon Dioxide 18 mmol/L (22-29); Chloride 109 mmol/L (96-108); Creatinine Clr Calc Pharmacy 93.5; Estimated Glomerular Filt Rate > 60; Glucose Random 135 mg/dL (60-115); Lipase 8 U/L (8-78); Magnesium 1.7 mg/dL (1.6-2.6); Potassium 3.4 mmol/L (3.3-5.1); Sodium 142 mmol/L (135-145); Total Protein 8.9 g/dL (6.5-8.0)
[2023-09-21 21:34] LABS: Influenza A PCR NEGATIVE (Negative); Influenza B PCR NEGATIVE (Negative); Resp Syncy Virus RNA Qual PCR NEGATIVE (Negative); SARS COV2 PCR INHOUSE NEGATIVE (Negative)
[2023-09-21 21:41] VITALS: BP 117/79; PULSE 139; RESP 18; TEMP 37.1; O2SAT 98
[2023-09-21] MEDS: Morphine Sulfate 4 MG/ML CARTRIDGE IVPUSH (22:24)
[2023-09-21] MEDS: ondansetron HCL 4 MG/2 ML VIAL IVPUSH (22:24)
[2023-09-21] MEDS: 0.9 % Sodium Chloride 1,000 ML 999 ML IV (22:24)
[2023-09-21] MEDS: iohexoL 350 MG/ML 100 ML INFUS..BTL 85 ML IV (22:44)
[2023-09-21 22:56] VITALS: PULSE 123; RESP 13; O2SAT 94
[2023-09-21 22:56] LABS: Erythrocyte Sedimentation Rate 2 MM/HR (0-15)
[2023-09-21 22:56] LABS: CDiff Gene PCR NEGATIVE (Negative)
[2023-09-22 00:56] VITALS: BP 115/66; PULSE 127; RESP 20; TEMP 37.4; O2SAT 99
[2023-09-22] MEDS: Dicyclomine HCl 10 MG CAPSULE 20 MG PO (01:19)
[2023-09-22 01:26] VITALS: BP 115/66; PULSE 127; RESP 20; TEMP 37.4; O2SAT 99
[2023-09-22 11:57] LABS: Adenovirus F 40/41 Not Detected (Not Detect.); Astrovirus Not Detected (Not Detect.); Cryptosporidium Not Detected (Not Detect.); Cyclospora cayetanensis Not Detected (Not Detect.); E. coli EAEC Not Detected (Not Detect.); E. coli EPEC Not Detected (Not Detect.); E. coli ETEC Not Detected (Not Detect.); E. coli STEC Not Detected (Not Detect.); Entamoeba histolytica Not Detected (Not Detect.); Giardia lamblia Not Detected (Not Detect.); Plesiomonas shigelloides Not Detected (Not Detect.); Rotavirus A Not Detected (Not Detect.); Salmonella Not Detected (Not Detect.); Sapovirus Not Detected (Not Detect.); Shigella sp./EIEC Not Detected (Not Detect.); Vibrio Not Detected (Not Detect.); Vibrio Cholerae Not Detected (Not Detect.); Yersinia enterocolitica Not Detected (Not Detect.)
[2023-09-22 12:49] LABS: Campylobacter Detected (Not Detect.)
== END 2023-09-22 01:27 | disposition home or self-care (01) ==
PROVIDERS: Physician Assistant; Physician Assistant Medical; Emergency Provider Emergency Medicine; PCP Internal Medicine
DX: I88.0 Nonspecific mesenteric lymphadenitis (principal); K50.90 Crohn's disease, unspecified, without complications; Z86.19 Personal history of other infectious and parasitic diseases
CPT/HCPCS: 0241U; 74177; 80053; 83690; 83735; 85025; 85652; 86140; 87493; 87507; 93005; 96361; 96374; 96375; 99284; J2270; J2405; Q9967

== ENCOUNTER → 2023-09-21 20:39 | Outpatient (BNV) | payer OTHER, SELFPAY | PROVIDERS: Emergency Provider Emergency Medicine; PCP Internal Medicine; Visit Provider Internal Medicine Cardiovascular Disease | DX: R00.0 Tachycardia, unspecified (principal) | CPT/HCPCS: 93010 ==

== ENCOUNTER 2025-02-26 17:41 | Emergency (ER) | payer OTHER, SELFPAY ==
[2025-02-26 17:47] VITALS: BP 153/83; PULSE 88; RESP 18; TEMP 36.6; O2SAT 98; BMI 25.4
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
[2025-02-26 18:50] LABS: MANUAL DIFF FLAG NO
[2025-02-26 18:54] LABS: Appearance Urine Turbid; Glucose Urine UA Negative (Negative); PH 6.0 (5.0-9.0); Specific Gravity - Urine 1.020 (1.005-1.025); UMIC TRIGGER UACC YES
[2025-02-26 19:02] LABS: Cannabinoid Screen Urine POSITIVE (Not Detect)
[2025-02-26 19:09] LABS: Acetaminophen LAB 8 mcg/mL (<30); Alanine Aminotransferase 41 U/L (0-40); Albumin Level 4.6 g/dL (3.5-5.0); Alkaline Phosphatase 86 U/L (39-117); Anion Gap 14 (12-20); Aspartate Amino Transferase 31 U/L (5-37); Blood Urea Nitrogen 6 mg/dL (9-16); Calcium 10.7 mg/dL (8.4-10.2); Carbon Dioxide 26 mmol/L (22-29); Chloride 109 mmol/L (96-108); Creatinine Clr Calc Pharmacy 127.2; Estimated Glomerular Filt Rate > 60; Potassium 3.9 mmol/L (3.3-5.1); Salicylate < 5.0 mg/dL (15-30); Sodium 145 mmol/L (135-145); Total Protein 7.6 g/dL (6.5-8.0)
[2025-02-26 19:10] LABS: Hematocrit 43.6 % (42.0-52.0); Hemoglobin 13.8 g/dl (14.0-18.0); Imm Gran Abs Auto 0.03 X10*3/uL (0.00-0.03); Imm Gran Pct Auto 0.3 % (0.0-0.4); Lymphocytes Absolute Auto 3.8 X10*3/uL (1.2-4.9); Mean Corpuscular HGB Conc 31.7 g/dl (31.0-36.0); Mean Corpuscular Hemoglobin 26.7 pg (27.0-33.0); Mean Corpuscular Volume 84.5 fL (80.0-98.0); NRBC Abs Auto 0.000 X10*3/uL (0.0-0.012); NRBC Pct Auto 0.0 /100WBC (0.0-0.2); Platelet Count 300 X10*3/uL (160-400); Red Blood Count 5.16 X10*6/uL (4.60-5.80); White Blood Count 10.6 X10*3/uL (4.8-10.8)
--- NOTE | 2025-02-26 19:24 | MHC.EDTECH ---
EKG not needed per provider. RN aware
[2025-02-26] MEDS: buPROPion HCl XL 300 MG TAB.ER.24H PO (20:20)
[2025-02-27 06:43] VITALS: BP 112/65; PULSE 86; RESP 20; TEMP 36.6; O2SAT 97
--- NOTE | 2025-02-27 07:55 | PC.NURSE ---
Assumed care, report received. Pt is currently sleeping, he is brought breakfast, safety is maintained.
--- NOTE | 2025-02-28 22:16 | MHC.CARE ---
RAD Team emailed php referral for this pt. Will follow up tomorrow
== END 2025-02-27 10:20 | disposition home or self-care (01) ==
PROVIDERS: Physician Assistant; Emergency Provider Emergency Medicine
DX: F32.A Depression, unspecified (principal); F43.10 Post-traumatic stress disorder, unspecified; Z79.899 Other long term (current) drug therapy
CPT/HCPCS: 36415; 80053; 80143; 80179; 80307; 81001; 85025; 99285; S9485